=== PATIENT | female | born 1995 | race Caucasian/White ===

== ENCOUNTER → 2016-07-06 | Outpatient (CLI) | payer BC, OTHER ==
[2016-07-06 10:45] LABS: CH 24.7; HCT 35.9 % (34.0-46.0); HDW 2.74; HGB 11.9 gm/dL (11.4-16.0); MCH 24.9 pg (25.0-35.0); MCHC 33.1 g/dL (31.0-37.0); MCV 75.3 fL (80.0-100.0); Mean Platelet Volume 6.6; Microcytosis Slight; RBC 4.77 m/uL (3.80-5.40); RDW 15.2 % (11.5-15.5)
== END | disposition home or self-care (01) ==
LOC: LABWHC1 09:05
PROVIDERS: ATTEND Obstetrics & Gynecology
DX: Z34.02 Encounter for supervision of normal first pregnancy, second trimester (principal); Z3A.00 Weeks of gestation of pregnancy not specified
CPT/HCPCS: 36415; 82950; 85027

== ENCOUNTER → 2016-07-12 | Outpatient (CLI) | payer BC, OTHER ==
[2016-07-12 11:56] LABS: Glucose 3 Hour, Gest 85 mg/dL
== END | disposition home or self-care (01) ==
LOC: LABWHC1 08:02
PROVIDERS: ATTEND Obstetrics & Gynecology
DX: O99.810 Abnormal glucose complicating pregnancy (principal); Z3A.00 Weeks of gestation of pregnancy not specified
CPT/HCPCS: 36415; 82951; 82952

== ENCOUNTER → 2016-08-21 | Outpatient (CLI) | payer BC, OTHER ==
--- NOTE | 2016-08-21 15:52 | US ---
EXAMINATION TYPE: US OB >= 14 wk fetus DATE OF EXAM: 08/21/2016 10:14 AM COMPARISON: on PACS CLINICAL HISTORY: O36.63X0 for growth TECHNIQUE: Transabdominal (TA) GESTATIONAL AGE / DATING Physician Established: (31 weeks/2 days) EDC: 10/21/2016 Dates by Current Scan: (33 weeks/3 days) EDC: 10/06/2016 SURVEY IUP: Single PLACENTA: Anterior PREVIA: No Previa MARCELA: 14.4 cm Normal CERVICAL LENGTH (transabdominal: norm > 3.0cm): 3.3 cm BIOMETRY PRESENTATION: Vertex LIE: Longitudinal BPD: 8.3 cm 33 weeks / 3 days HC: 30.3 cm 33 weeks / 5 days AC: 29.3 cm 33 weeks / 3 days FL: 6.3 cm 32 weeks / 5 days ESTIMATED WEIGHT IN GRAMS: 2128 grams ESTIMATED WEIGHT IN LBS/OZS: 4 lbs. 11 oz. WEIGHT PERCENTAGE BASED ON ESTABLISHED DATES: 92% HC/AC: 1.0 Normal FL/AC: Normal HEART RATE: 132 bpm RHYTHM: Normal Live single IUP measuring 33 weeks 3 days IMPRESSION: 1. Single intrauterine gestation estimated at 33 weeks 3 days gestation based on the current ultrasou nd measurements. This would have a calculated EDC of 10/06/2016. Correlate this with her physician est ablished EDC of 10/21/2016. 2. Cardiac activity measures 132 bpm.
== END | disposition home or self-care (01) ==
LOC: RADUSWWP 09:42
PROVIDERS: ATTEND Obstetrics & Gynecology
DX: O36.63X0 Maternal care for excessive fetal growth, third trimester, not applicable or unspecified (principal); Z3A.33 33 weeks gestation of pregnancy
CPT/HCPCS: 76805

== ENCOUNTER 2016-10-02 06:05 | Inpatient (IN) | payer BC, OTHER ==
--- NOTE | 2016-10-01 19:53 | P.HPOB ---
History of Present Illness H&P Date: 10/01/16 Chief Complaint: Gestational hypertension, chronic hypertension This is a 21-year-old female 1 para 0 with an estimated date of confinement of 10/17/2016, estimated gestational age of 37-6/7 weeks, who presents to labor and delivery for induction of labor secondary to gestational hypertension with 2 documented blood pressures greater than 140/90 on 2 occasions more than 20 minutes apart. One week ago she did have an elevated blood pressure in the office of 148/90. Repeat blood pressure did come down to 138/88 and she was sent to labor and delivery for lab work and serial blood pressures which all were normal. She presents again for visit on 10/01 and her blood pressure is 148/92 despite increasing her blood pressure medications. She does complain of nausea and some dizziness but denies any headaches or blurry vision. She has been experiencing some swelling in her lower extremities. Due to the fact that her chronic hypertension is no longer controlled and she has increased blood pressures on several occasions, the decision is made to proceed with delivery due to gestational hypertension past 37 weeks. She is also had a complicated by gestational diabetes on glyburide twice daily. Her blood sugars have been in good control. She has been getting regular nonstress tests twice weekly in the office. She is also been following with high risk maternal medicine. labs: Toxoplasma-negative Syphilis antibody-negative HIV-nonreactive Random glucose-103 Hepatitis B surface antigen-negative Hemoglobin-12.6 Rubella-immune Blood type-oh positive Antibody screen-negative Obstetrical ultrasound-normal anatomy One hour Glucola-182 Three-hour Glucola-3 values are high. Group B streptococcus-negative Obstetrical history: . Gynecologic history: No history of sexual transmitted diseases. Review of Systems Constitutional: Denies chills, Denies fever Ears, nose, mouth and throat: Denies headache, Denies sore throat Cardiovascular: Denies chest pain, Denies shortness of breath Respiratory: Denies cough Gastrointestinal: Reports abdominal pain (Irregular contractions), Reports nausea Genitourinary: Reports pelvic pain, Reports Musculoskeletal: Reports low back pain Neurological: Denies numbness, Denies weakness Psychiatric: Denies anxiety, Denies depression Past Medical History Past Medical History: No Reported History History of Any Multi-Drug Resistant Organisms: None Reported Past Surgical History: Adenoidectomy, Tonsillectomy Past Psychological History: Depression Smoking Status: Never smoker Past Alcohol Use History: None Reported Past Drug Use History: None Reported - Past Family History Mother Family Medical History: Hypertension Medications and Allergies Home Medications Medication Instructions Recorded Confirmed Type Labetalol [Trandate] 100 mg PO BID 10/01/16 10/01/16 History Pnv with Ca,No.72/Iron/FA 1 tab PO DAILY 10/01/16 10/01/16 History [ Plus Tablet] glyBURIDE [Glyburide] 1.25 mg PO BID 10/01/16 10/01/16 History Allergies Allergy/AdvReac Type Severity Reaction Status Date / Time codeine AdvReac Unknown Verified 10/01/16 19:50 Exam Osteopathic Statement: *. No significant issues noted on an osteopathic structural exam other than those noted in the History and Physical/Consult. HEENT: Within normal limits Heart: Regular rate and rhythm Lungs: Clear to auscultation bilaterally Abdomen: , fundal height of 39 cm Cervix: 1.5 cm/60%/-3 heart tones: 140s by Doppler, reactive Extremities: Negative Homans, trace edema Assessment and Plan (1) 37 weeks gestation of Status: Acute (2) Gestational hypertension Status: Acute (3) Chronic hypertension affecting Status: Acute (4) Gestational diabetes mellitus Status: Acute Plan: Proceed with oxytocin induction of labor. Expectant management. Careful monitoring of blood sugars during labor.
[2016-10-02] MEDS ORDERED: OXYTOCIN 20 UNITS/1000 ML NS 1,000 ML IV SCH (06:20)
[2016-10-02] MEDS ORDERED: LIDOCAINE 1% 20 ML VIAL (10MG/ML) FOR IV START INTRADERMA PRN (06:20)
[2016-10-02] MEDS ORDERED: LIDOCAINE 1% (PF) 10 MG/ML (30 ML SDV) SQ PRN (06:20)
[2016-10-02] MEDS ORDERED: METHYLERGONOVINE 0.2 MG/ML 1 ML AMP IM PRN (06:20)
[2016-10-02] MEDS ORDERED: OXYTOCIN 10 UNIT/ML 1 ML VIAL IM PRN (06:20)
[2016-10-02] MEDS ORDERED: TERBUTALINE 1 MG/ML VIAL SQ PRN (06:20)
[2016-10-02] MEDS ORDERED: CARBOPROST TROMETHAMINE 250 MCG/ML 1 ML AMP IM PRN (06:20)
[2016-10-02 06:26] LABS: Glucose,Whole Blood 129 mg/dL (75-99)
[2016-10-02 06:32] VITALS: BMI 43.2
[2016-10-02 06:37] LABS: Basophils % (A) 0 %; CHCM 33.9; Eosinophils # (A) 0.1 k/uL (0-0.7); Eosinophils % (A) 1 %; HCT 35.7 % (34.0-46.0); HDW 2.94; Luc # (Auto) 0.16; Luc % (Auto) 1; Lymphocytes # (A) 2.2 k/uL (1.0-4.8); Lymphocytes % (A) 19 %; MCH 24.9 pg (25.0-35.0); MCHC 33.6 g/dL (31.0-37.0); MCV 74.1 fL (80.0-100.0); Mean Platelet Volume 7.1; Microcytosis Slight; Monocytes # (A) 0.5 k/uL (0-1.0); Monocytes % (A) 4 %; Neutrophils # (A) 8.7 k/uL (1.3-7.7); Neutrophils % (A) 75 %; RBC 4.81 m/uL (3.80-5.40); RDW 15.8 % (11.5-15.5); WBC 11.6 k/uL (4.0-11.0); WBC (Perox) 11.66
[2016-10-02] MEDS: LACTATED RINGERS 1,000 ML IV SCH ×3 (06:57→21:20)
[2016-10-02 07:23] LABS: Glucose,Urine (UA) Negative (Negative); Ketones,Urine Negative (Negative); Protein,Urine Negative (Negative)
[2016-10-02 07:41] LABS: ALT 22 U/L (9-52); AST 11 U/L (14-36); LDH 359 U/L (313-618); Non-African American GFR(MDRD) >60 (>60 ml/min/1.73 sqM); Uric Acid 6.1 mg/dL (3.7-7.4)
[2016-10-02 08:34] LABS: Hemoglobin A1C 6.2 % (4.2-6.1)
[2016-10-02 08:34] LABS: Glucose,Whole Blood 118 mg/dL (75-99)
[2016-10-02] MEDS: LABETALOL 100 MG TAB PO SCH ×2 (09:00→21:21)
[2016-10-02 11:08] LABS: Glucose,Whole Blood 124 mg/dL (75-99)
[2016-10-02 12:27] LABS: Glucose,Whole Blood 104 mg/dL (75-99)
[2016-10-02 14:18] LABS: Glucose,Whole Blood 94 mg/dL (75-99)
[2016-10-02 16:55] LABS: Glucose,Whole Blood 86 mg/dL (75-99)
[2016-10-02] MEDS ORDERED: LIDOCAINE-D5W PMX 2G/500ML 4 MG/ML IV ONE (17:21)
[2016-10-02] MEDS ORDERED: SODIUM CHLORIDE 0.9% 100 ML BAG ONE (17:21)
[2016-10-02] MEDS ORDERED: fentaNYL (PF) 50 MCG/ML 5 ML AMP ONE (17:21)
[2016-10-02 18:15] LABS: Glucose,Whole Blood 87 mg/dL (75-99)
[2016-10-02 20:12] LABS: Glucose,Whole Blood 91 mg/dL (75-99)
[2016-10-02 22:09] LABS: Glucose,Whole Blood 79 mg/dL (75-99)
[2016-10-03 00:15] LABS: Glucose,Whole Blood 87 mg/dL (75-99)
[2016-10-03] MEDS ORDERED: AMPICILLIN 2,000 MG in SODIUM CHLORIDE 0.9% 100 ML IVPB STA (01:48)
[2016-10-03 02:15] LABS: Glucose,Whole Blood 86 mg/dL (75-99)
--- NOTE | 2016-10-03 03:42 | P.PROBDLV ---
Vaginal Delivery Note - . Vaginal Delivery Note: The patient progressed to complete dilation after a rather protracted labor course with artificial rupture membranes and oxytocin induction of labor. She did receive epidural anesthesia. Once reaching complete dilation, she began pushing. 's head came to a crown. With one further push, the infant's head delivered across the perineum followed by the anterior shoulder and was immediately delivered and placed on mother's abdomen. Nose and mouth were bulb suctioned. Cord was clamped and cut and infant was taken to warmer for evaluation. A viable female infant was noted with scores of 8 at 1 minute and 9 at 5 minutes and infant weight was 8 lbs. 13.8 ounces. Placenta was not ready to separate yet and therefore attention was turned to the repair. Inspection of the perineum revealed a second-degree perineal laceration. This area was anesthetized with 1% lidocaine and then sutured with 3-0 and 2-0 Vicryl suture in the usual multilayer fashion. Once this was completed the placenta was ready to deliver. With gentle fundal massage the placenta did deliver and appeared to be intact with a three-vessel cord. Uterus initially did contract well with oxytocin and uterine massage. There was still noted to be some bleeding and therefore gloved hand was placed into the intrauterine cavity and there was a small piece of membrane removed along with some blood clot. Once this was removed the uterus did contract well and bleeding slowed considerably. Estimated blood loss is approximately 250 mL's. Mother and are in stable condition.
[2016-10-03] MEDS ORDERED: SIMETHICONE 80 MG CHEWABLE PO PRN (03:48)
[2016-10-03] MEDS ORDERED: HYDROCORTISONE 2.5% RECTAL CREAM 30 GM TUBE RECTAL PRN (03:48)
[2016-10-03] MEDS ORDERED: WITCH HAZEL 1 EACH MED..PAD TOPICAL PRN (03:48)
[2016-10-03] MEDS ORDERED: LANOLIN CREAM 5 GM TUBE TOPICAL PRN (03:48)
[2016-10-03] MEDS ORDERED: ZOLPIDEM 5 MG TAB PO PRN (03:48)
[2016-10-03] MEDS ORDERED: BENZOCAINE/MENTHOL SPRAY 1 GM/SPRAY AEROSOL TOPICAL PRN (03:48)
[2016-10-03] MEDS ORDERED: diphenhydrAMINE 50 MG CAP PO PRN (03:48)
[2016-10-03] MEDS ORDERED: diphenhydrAMINE 50 MG/ML 1 ML VIAL IVP PRN ×2 (03:48)
[2016-10-03] MEDS ORDERED: ACETAMINOPHEN TAB 325 MG TAB PO PRN (03:48)
[2016-10-03] MEDS ORDERED: OXYTOCIN 20 UNITS/1000 ML NS 1,000 ML IV SCH (03:48)
[2016-10-03] MEDS ORDERED: diphenhydrAMINE 25 MG CAP PO PRN (03:48)
[2016-10-03] MEDS: IBUPROFEN 600 MG TAB PO PRN ×2 (04:07→14:10)
[2016-10-03] MEDS: SENNOSIDES-DOCUSATE SODIUM 1 EACH TAB PO SCH ×4 (05:20→22:15)
[2016-10-03] MEDS ORDERED: AMPICILLIN 1,000 MG in SODIUM CHLORIDE 0.9% 50 ML IVPB SCH (06:00)
[2016-10-03 07:24] LABS: Glucose,Whole Blood 234 mg/dL (75-99)
[2016-10-03] MEDS: LABETALOL 100 MG TAB PO SCH ×2 (09:13→22:15)
[2016-10-04 08:29] LABS: Basophils % (A) 0 %; CH 24.7; CHCM 33.7; Eosinophils # (A) 0.1 k/uL (0-0.7); Eosinophils % (A) 1 %; HCT 24.6 % (34.0-46.0); HDW 2.94; Luc # (Auto) 0.15; Luc % (Auto) 2; Lymphocytes # (A) 1.9 k/uL (1.0-4.8); Lymphocytes % (A) 19 %; MCH 25.3 pg (25.0-35.0); MCHC 34.4 g/dL (31.0-37.0); MCV 73.5 fL (80.0-100.0); Mean Platelet Volume 7.2; Microcytosis Slight; Monocytes # (A) 0.5 k/uL (0-1.0); Monocytes % (A) 5 %; Neutrophils # (A) 7.7 k/uL (1.3-7.7); Neutrophils % (A) 74 %; RBC 3.34 m/uL (3.80-5.40); RDW 15.7 % (11.5-15.5); WBC 10.4 k/uL (4.0-11.0); WBC (Perox) 10.53
[2016-10-04 08:30] LABS: HGB 8.5 gm/dL (11.4-16.0)
--- NOTE | 2016-10-04 08:51 | P.DS ---
Providers Date of admission: 10/02/16 06:05 Expected date of discharge: 10/04/16 Attending physician: Giulia Carmona Primary care physician: Melissa Logan - Discharge Diagnosis(es) (1) 37 weeks gestation of Current Visit: Yes Status: Acute (2) Gestational hypertension Current Visit: Yes Status: Acute (3) Chronic hypertension affecting Current Visit: Yes Status: Acute (4) Gestational diabetes mellitus Current Visit: Yes Status: Acute Hospital Course: This is a 21 y.o female 1, para 0 who presented to L&D for induction of labor due to gestational hypertension with chronic hypertension and gestational diabetes. She underwent oxytocin induction of labor and delivered a viable female on 10/03/2016 with scores of 8 at 1 minute and 9 at 5 minutes and infant weight of 8 pounds, 13.8oz. Her course has been uncomplicated. She is breast-feeding. Denies any pain. Lochia is decreasing. Vital signs are stable. Abdomen is soft with fundus firm and non-tender. Extremities show trace edema. Impression is status post vaginal delivery day #1. Plan is to discharge home today. I have advised her to continue her Labetalol 100 mg BID, but discontinue her Glyburide. She will follow up in the office in 1 week for a blood pressure check and in 6 weeks for a post- check. Routine instructions are given. She is advised to call the office if she has any further questions or concerns prior to her appt. time. Procedures: Oxytocin induction of labor Spontaneous vaginal delivery of viable female on 10/03/2016. Patient Condition at Discharge: Stable Plan - Discharge Summary Discharge Medication List Labetalol [Trandate] 100 mg PO BID 10/01/16 [History] Pnv with Ca,No.72/Iron/FA [ Plus Tablet] 1 tab PO DAILY 10/01/16 [ History] Acetaminophen Tab [Tylenol] 650 mg PO Q4HR PRN tab 10/04/16 [Rx] Ibuprofen [Motrin] 600 mg PO Q6HR PRN tab 10/04/16 [Rx] Follow up Appointment(s)/Referral(s): Giulia Carmona DO [Doctor of Osteopathic Medicine] - 1 Week (1 week for BP check 6 weeks ) Discharge Disposition: HOME SELF-CARE
[2016-10-04 09:11] VITALS: BP 125/67; PULSE 92; RESP 16; TEMP 98.5
== END 2016-10-04 10:50 | disposition home or self-care (01) | DRG 774 ==
LOC: 4FBP 06:05
PROVIDERS: ADMIT Obstetrics & Gynecology; ATTEND Obstetrics & Gynecology
PROC: 3E033VJ Introduction of Other Hormone into Peripheral Vein, Percutaneous Approach (ICD-10-PCS; 2016-10-02)
PROC: 10E0XZZ Delivery of Products of Conception, External Approach (ICD-10-PCS; principal; 2016-10-03)
PROC: 0KQM0ZZ Repair Perineum Muscle, Open Approach (ICD-10-PCS; 2016-10-03)
DX: O10.02 Pre-existing essential hypertension complicating childbirth (principal); O70.1 Second degree perineal laceration during delivery; O13.4 Gestational [pregnancy-induced] hypertension without significant proteinuria, complicating childbirth; Z37.0 Single live birth; Z3A.37 37 weeks gestation of pregnancy; Z86.59 Personal history of other mental and behavioral disorders; Z79.84 Long term (current) use of oral hypoglycemic drugs
CPT/HCPCS: 81003; 82565; 83036; 83615; 84450; 84460; 84550; 85025; 88307

== ENCOUNTER 2017-06-02 16:51 | Emergency (ER) | payer BC, OTHER ==
[2017-06-02] MEDS ORDERED: SODIUM CHLORIDE 0.9% 2,000 ML IV STA (17:36)
[2017-06-02] MEDS ORDERED: ONDANSETRON 4 MG/2 ML VIAL IVP STA (17:36)
--- NOTE | 2017-06-02 18:03 | ED ---
Nausea/Vomiting/Diarrhea HPI - General Chief complaint: Nausea/Vomiting/Diarrhea Stated complaint: Abd Pain/Vomiting Time Seen by Provider: 06/02/17 17:07 Source: patient Mode of arrival: ambulatory Limitations: no limitations - History of Present Illness Initial comments: Patient is a 21-year-old female who comes in for abdominal pain and nausea, vomiting, diarrhea. Patient states that this abdominal pain started this morning and is described as a diffuse constant crampy sensation without radiation or modifying factors. She thinks that she has the chills but is unsure and denies any fever. She also admits to 10 episodes of diarrhea, vomiting. She denies any urinary symptoms or vaginal bleeding. - Related Data Home Medications Medication Instructions Recorded Confirmed ALPRAZolam [Xanax] 0.25 mg PO BID PRN 06/02/17 06/02/17 Sertraline [Zoloft] 50 mg PO DAILY 06/02/17 06/02/17 Previous Rx's Medication Instructions Recorded Dicyclomine [Bentyl] 20 mg PO QID #15 tablet 06/02/17 Ondansetron [Zofran ODT] 4 mg PO Q8HR PRN #15 tab 06/02/17 Allergies Allergy/AdvReac Type Severity Reaction Status Date / Time codeine AdvReac Nausea & Verified 06/02/17 18:11 Vomiting Review of Systems ROS Statement: Those systems with pertinent positive or pertinent negative responses have been documented in the HPI. Constitutional: Negative for chills, fatigue and fever. HENT: Negative for congestion. Respiratory: Negative for chest tightness, shortness of breath and wheezing. Cardiovascular: Negative for chest pain and palpitations. Gastrointestinal: Positive for abdominal pain, positive for nausea/vomiting/ diarrhea Genitourinary: Negative for dysuria. Musculoskeletal: Negative for back pain, neck pain and neck stiffness. Skin: Negative for color change. Neurological: Negative for dizziness, speech difficulty, weakness and light- headedness. Psychiatric/Behavioral: Negative for agitation and confusion. The patient is not nervous/anxious. ROS Other: All systems not noted in ROS Statement are negative. Past Medical History Past Medical History: No Reported History Additional Past Medical History / Comment(s): geststational hypertension and gestational diabetes History of Any Multi-Drug Resistant Organisms: None Reported Past Surgical History: Adenoidectomy, Tonsillectomy Past Anesthesia/Blood Transfusion Reactions: No Reported Reaction Past Psychological History: No Psychological Hx Reported Smoking Status: Never smoker Past Alcohol Use History: None Reported Past Drug Use History: None Reported - Past Family History Mother Family Medical History: Diabetes Mellitus Additional Family Medical History / Comment(s): type 2 diabetes, pill controlled General Exam - General Exam Comments Initial Comments: Physical Exam Constitutional: He is oriented to person, place, and time. He appears well- developed and well-nourished. No distress. HENT: Head: Normocephalic and atraumatic. Eyes: EOM are normal. Neck: Normal range of motion. Neck supple. Cardiovascular: Tachycardia, regular rhythm, S1 normal, S2 normal and normal heart sounds. Exam reveals no gallop and no friction rub. No murmur heard. Pulmonary/Chest: Effort normal and breath sounds normal. No tachypnea and no bradypnea. No respiratory distress. He has no wheezes. He has no rales. Abdominal: Soft. Bowel sounds are normal. He exhibits no shifting dullness, no distension, no pulsatile liver, no fluid wave, no abdominal bruit and no ascites. There is no tenderness. There is no rigidity, no rebound, no guarding, no tenderness at McBurney's point and negative Carvajal's sign. Genitourinary: Rectal exam shows no external hemorrhoid, no internal hemorrhoid , no fissure, no mass and no tenderness. Prostate is not tender. Musculoskeletal: Normal range of motion. Neurological: He is alert and oriented to person, place, and time. No cranial nerve deficit. Skin: Skin is warm and dry. No rash noted. He is not diaphoretic. No erythema. No pallor. Psychiatric: He has a normal mood and affect. His behavior is normal. Thought content normal. Limitations: no limitations Course Vital Signs 06/02/17 06/02/17 17:08 19:09 Temperature 96.9 F L 97.4 F L Pulse Rate 127 H 86 Respiratory 20 18 Rate Blood Pressure 159/95 148/81 O2 Sat by Pulse 98 97 Oximetry Medical Decision Making - Medical Decision Making Laboratory studies did show that there is a leukocytosis of over 22,000. However, this is suspected to be likely a viral illness as there is no evidence of transaminitis or infection from the urinalysis. Influenza was also noted to be negative. She was given 2 L of fluids and given Zofran as well as Bentyl stated symptoms were much improved. Vital signs were also noted to be improved after fluids. Patient was reexamined at least 2 times during her stay in the emergency department and had no pain to palpation on her abdominal exam. Therefore it was felt that she could safely be discharged and follow up with her PCP. Nonetheless, patient was cautioned to return to emergency department if symptoms worsened. Fiance and patient were agreeable to plan. Lastly, there is low suspicion of Clostridium difficile as the patient stated that she has not been using any antibiotics recently.. - Lab Data Result diagrams: 06/02/17 17:54 06/02/17 17:54 Lab Results 06/02/17 06/02/17 06/02/17 Range/Units 17:54 17:54 18:15 WBC 22.5 H (4.0-11.0) k/uL RBC 6.12 H (3.80-5.40) m/uL Hgb 13.7 (11.4-16.0) gm/dL Hct 42.6 (34.0-46.0) % MCV 69.6 L (80.0-100.0) fL MCH 22.4 L (25.0-35.0) pg MCHC 32.1 (31.0-37.0) g/dL RDW 15.5 (11.5-15.5) % Plt Count 407 (150-450) k/uL Neutrophils % 92 % Lymphocytes % 4 % Monocytes % 3 % Eosinophils % 0 % Basophils % 0 % Neutrophils # 20.7 H (1.3-7.7) k/uL Lymphocytes # 1.0 (1.0-4.8) k/uL Monocytes # 0.6 (0-1.0) k/uL Eosinophils # 0.1 (0-0.7) k/uL Basophils # 0.0 (0-0.2) k/uL Microcytosis Moderate Sodium 141 (137-145) mmol/L Potassium 4.5 (3.5-5.1) mmol/L Chloride 103 (98-107) mmol/L Carbon Dioxide 23 (22-30) mmol/L Anion Gap 15 mmol/L BUN 10 (7-17) mg/dL Creatinine 0.69 (0.52-1.04) mg/dL Est GFR (MDRD) Af Amer >60 (>60 ml/min/1.73 sqM) Est GFR (MDRD) Non-Af >60 (>60 ml/min/1.73 sqM) Glucose 137 H (74-99) mg/dL Calcium 10.2 (8.4-10.2) mg/dL Magnesium 1.6 (1.6-2.3) mg/dL Total Bilirubin 0.6 (0.2-1.3) mg/dL AST 20 (14-36) U/L ALT 42 (9-52) U/L Alkaline Phosphatase 114 (38-126) U/L Total Protein 8.4 H (6.3-8.2) g/dL Albumin 4.9 (3.5-5.0) g/dL Lipase 64 (23-300) U/L Urine Color Urine Appearance (Clear) Urine pH (5.0-8.0) Ur Specific [place] (1.001-1.035) Urine Protein (Negative) Urine Glucose (UA) (Negative) Urine Ketones (Negative) Urine Blood (Negative) Urine Nitrite (Negative) Urine Bilirubin (Negative) Urine Urobilinogen (<2.0) mg/dL Ur Leukocyte Esterase (Negative) Urine RBC (0-5) /hpf Urine WBC (0-5) /hpf Ur Squamous Epith Cells (0-4) /hpf Urine Bacteria (None) /hpf Granular Casts (0) /lpf Urine Mucus (None) /hpf Urine HCG, Qual (Not Detectd) Influenza Type A RNA Not Detected (Not Detectd) Influenza Type B (PCR) Not Detected (Not Detectd) 06/02/17 06/02/17 Range/Units 18:15 18:15 WBC (4.0-11.0) k/uL RBC (3.80-5.40) m/uL Hgb (11.4-16.0) gm/dL Hct (34.0-46.0) % MCV (80.0-100.0) fL MCH (25.0-35.0) pg MCHC (31.0-37.0) g/dL RDW (11.5-15.5) % Plt Count (150-450) k/uL Neutrophils % % Lymphocytes % % Monocytes % % Eosinophils % % Basophils % % Neutrophils # (1.3-7.7) k/uL Lymphocytes # (1.0-4.8) k/uL Monocytes # (0-1.0) k/uL Eosinophils # (0-0.7) k/uL Basophils # (0-0.2) k/uL Microcytosis Sodium (137-145) mmol/L Potassium (3.5-5.1) mmol/L Chloride (98-107) mmol/L Carbon Dioxide (22-30) mmol/L Anion Gap mmol/L BUN (7-17) mg/dL Creatinine (0.52-1.04) mg/dL Est GFR (MDRD) Af Amer (>60 ml/min/1.73 sqM) Est GFR (MDRD) Non-Af (>60 ml/min/1.73 sqM) Glucose (74-99) mg/dL Calcium (8.4-10.2) mg/dL Magnesium (1.6-2.3) mg/dL Total Bilirubin (0.2-1.3) mg/dL AST (14-36) U/L ALT (9-52) U/L Alkaline Phosphatase (38-126) U/L Total Protein (6.3-8.2) g/dL Albumin (3.5-5.0) g/dL Lipase (23-300) U/L Urine Color Yellow Urine Appearance Clear (Clear) Urine pH 5.5 (5.0-8.0) Ur Specific [place] 1.010 (1.001-1.035) Urine Protein 1+ H (Negative) Urine Glucose (UA) Negative (Negative) Urine Ketones Negative (Negative) Urine Blood Negative (Negative) Urine Nitrite Negative (Negative) Urine Bilirubin Negative (Negative) Urine Urobilinogen <2.0 (<2.0) mg/dL Ur Leukocyte Esterase Negative (Negative) Urine RBC 1 (0-5) /hpf Urine WBC 1 (0-5) /hpf Ur Squamous Epith Cells 1 (0-4) /hpf Urine Bacteria Rare H (None) /hpf Granular Casts 11 (0) /lpf Urine Mucus Occasional H (None) /hpf Urine HCG, Qual Not Detected (Not Detectd) Influenza Type A RNA (Not Detectd) Influenza Type B (PCR) (Not Detectd) Disposition Clinical Impression: Nausea vomiting and diarrhea Disposition: HOME SELF-CARE Condition: Good Instructions: Acute Nausea and Vomiting (ED) Prescriptions: Dicyclomine [Bentyl] 20 mg PO QID #15 tablet Ondansetron [Zofran ODT] 4 mg PO Q8HR PRN #15 tab PRN Reason: Nausea And Vomiting Referrals: Melissa Logan MD [Primary Care Provider] - 1-2 days
[2017-06-02 18:09] LABS: Basophils % (A) 0 %; Eosinophils # (A) 0.1 k/uL (0-0.7); Eosinophils % (A) 0 %; HCT 42.6 % (34.0-46.0); HGB 13.7 gm/dL (11.4-16.0); Lymphocytes % (A) 4 %; MCH 22.4 pg (25.0-35.0); MCHC 32.1 g/dL (31.0-37.0); MCV 69.6 fL (80.0-100.0); Mean Platelet Volume 6.3; Microcytosis Moderate; Monocytes # (A) 0.6 k/uL (0-1.0); Monocytes % (A) 3 %; Neutrophils # (A) 20.7 k/uL (1.3-7.7); Neutrophils % (A) 92 %; Platelet Count 407 k/uL (150-450); RBC 6.12 m/uL (3.80-5.40); RDW 15.5 % (11.5-15.5); WBC 22.5 k/uL (4.0-11.0)
[2017-06-02 18:21] LABS: ALT 42 U/L (9-52); AST 20 U/L (14-36); Albumin 4.9 g/dL (3.5-5.0); Alkaline Phosphatase 114 U/L (38-126); Anion Gap 15 mmol/L; Blood Urea Nitrogen 10 mg/dL (7-17); Calcium 10.2 mg/dL (8.4-10.2); Carbon Dioxide 23 mmol/L (22-30); Chloride 103 mmol/L (98-107); Glucose 137 mg/dL (74-99); Lipase 64 U/L (23-300); Magnesium 1.6 mg/dL (1.6-2.3); Potassium 4.5 mmol/L (3.5-5.1); Sodium 141 mmol/L (137-145); Total Bilirubin 0.6 mg/dL (0.2-1.3); Total Protein 8.4 g/dL (6.3-8.2)
[2017-06-02 19:04] LABS: Appearance,Urine Clear (Clear); Bacteria,Urine Rare /hpf; Bilirubin,Urine Negative (Negative); Blood,Urine Negative (Negative); Color,Urine Yellow; Glucose,Urine (UA) Negative (Negative); Granular Casts,Urine 11 /lpf (0); Ketones,Urine Negative (Negative); Leukocyte Esterase,Urine Negative (Negative); Mucus,Urine Occasional /hpf; Nitrite,Urine Negative (Negative); PH, Urine 5.5 (5.0-8.0); Protein,Urine 1+ (Negative); RBC,Urine 1 /hpf (0-5); Squamous Epithelial Cell,Urine 1 /hpf (0-4); Urobilinogen,Urine <2.0 mg/dL (<2.0); WBC,Urine 1 /hpf (0-5)
[2017-06-02 19:10] VITALS: BP 148/81; PULSE 86; RESP 18; TEMP 97.4
[2017-06-02] MEDS ORDERED: diphenhydrAMINE 50 MG/ML 1 ML VIAL IVP PRN (19:29)
[2017-06-02] MEDS ORDERED: METOCLOPRAMIDE 5 MG/ML 2 ML VIAL IVP STA (19:29)
[2017-06-02] MEDS ORDERED: diphenhydrAMINE 50 MG/ML 1 ML VIAL IVP STA (19:39)
== END 2017-06-02 20:04 | disposition home or self-care (01) ==
LOC: EC 16:51
DX: R11.2 Nausea with vomiting, unspecified (principal); R19.7 Diarrhea, unspecified; D72.829 Elevated white blood cell count, unspecified; R00.0 Tachycardia, unspecified; R10.84 Generalized abdominal pain; Z79.899 Other long term (current) drug therapy; Z88.5 Allergy status to narcotic agent
CPT/HCPCS: 36415; 80053; 83690; 83735; 85025; 81001; 81025; 87502; 99284; 96374; 96375 ×2; 96361 ×2; J1200; J2765; J2405

== ENCOUNTER 2017-06-21 09:51 | Emergency (ER) | payer BC ==
[2017-06-21 09:57] VITALS: RESP 18
--- NOTE | 2017-06-21 10:31 | ED ---
General Adult HPI - General Chief complaint: Vaginal Bleeding Stated complaint: Vaginal Bleeding- Time Seen by Provider: 06/21/17 10:01 Source: patient Mode of arrival: ambulatory Limitations: no limitations - History of Present Illness Initial comments: 21-year-old 001 presented for evaluation of vaginal bleeding that started this morning. She states that she woke up and noted the bleeding which was blood and clots. She denies any associated abdominal pain or other symptoms. Last Metro. Was 05/10 and she states that she does have a positive test at home and at her doctor's office. She states her previous was Located by gestational diabetes but no vaginal bleeding. She has not noticed any material from the vagina other than clots and blood. She is only gone through 1 pad today. No previous miscarriages. - Related Data Home Medications Medication Instructions Recorded Confirmed ALPRAZolam [Xanax] 0.25 mg PO BID PRN 06/02/17 06/21/17 Sertraline [Zoloft] 50 mg PO HS 06/02/17 06/21/17 Seb-Ople-Miryx Acid 1 cap PO DAILY 06/21/17 06/21/17 [-U Capsule (formulary)] Previous Rx's Medication Instructions Recorded Cephalexin [Keflex] 500 mg PO Q12HR #13 cap 06/21/17 Allergies Allergy/AdvReac Type Severity Reaction Status Date / Time codeine AdvReac Nausea & Verified 06/21/17 10:21 Vomiting Review of Systems ROS Statement: Those systems with pertinent positive or pertinent negative responses have been documented in the HPI. ROS Other: All systems not noted in ROS Statement are negative. Constitutional: Denies: fever, chills Eyes: Denies: eye pain, eye discharge ENT: Denies: ear pain, throat pain Respiratory: Denies: cough, dyspnea Cardiovascular: Denies: chest pain, palpitations Endocrine: Denies: fatigue, heat or cold intolerance Gastrointestinal: Denies: abdominal pain, nausea, vomiting Genitourinary: Reports: other (Vaginal bleeding). Denies: urgency, dysuria Musculoskeletal: Denies: back pain, arthralgia Skin: Denies: rash, lesions Neurological: Denies: headache, weakness Psychiatric: Denies: anxiety, depression Hematological/Lymphatic: Denies: easy bleeding, easy bruising Past Medical History Past Medical History: No Reported History Additional Past Medical History / Comment(s): geststational hypertension and gestational diabetes History of Any Multi-Drug Resistant Organisms: None Reported Past Surgical History: Adenoidectomy, Tonsillectomy Past Anesthesia/Blood Transfusion Reactions: No Reported Reaction Past Psychological History: No Psychological Hx Reported Smoking Status: Never smoker Past Alcohol Use History: None Reported Past Drug Use History: None Reported - Past Family History Mother Family Medical History: Diabetes Mellitus Additional Family Medical History / Comment(s): type 2 diabetes, pill controlled General Exam Limitations: no limitations General appearance: alert, in no apparent distress Head exam: Present: atraumatic, normocephalic, normal inspection Eye exam: Present: normal appearance, PERRL, EOMI. Absent: scleral icterus, conjunctival injection, periorbital swelling ENT exam: Present: normal exam, mucous membranes moist Neck exam: Present: normal inspection. Absent: tenderness, meningismus, lymphadenopathy Respiratory exam: Present: normal lung sounds bilaterally. Absent: respiratory distress, wheezes, rales, rhonchi, stridor Cardiovascular Exam: Present: regular rate, normal rhythm, normal heart sounds. Absent: systolic murmur, diastolic murmur, rubs, gallop, clicks GI/Abdominal exam: Present: soft, normal bowel sounds. Absent: distended, tenderness, guarding, rebound, rigid Rectal exam: Present: deferred Extremities exam: Present: normal inspection, full ROM, normal capillary refill. Absent: tenderness, pedal edema, joint swelling, calf tenderness Back exam: Present: normal inspection Neurological exam: Present: alert, oriented X3, CN II-XII intact Psychiatric exam: Present: normal affect, normal mood Skin exam: Present: warm, dry, intact, normal color. Absent: rash Course Vital Signs 06/21/17 06/21/17 09:55 11:52 Temperature 97.8 F 98.4 F Pulse Rate 91 77 Respiratory 18 18 Rate Blood Pressure 170/92 138/75 O2 Sat by Pulse 98 98 Oximetry Medical Decision Making - Medical Decision Making 21-year-old 001 female sitting for evaluation of vaginal bleeding that started this morning. Last period was 05/10 however she states no further confirmation of . On physical examination the patient appears to be in no apparent distress. Abdomen is soft and on peritoneal without signs of guarding, rigidity, or rebound. Labs significant for a UTI and patient was given her first dose of Keflex here in the ED. The BhCG was 679.2 which is not significant enough to detect on ultrasound. Pelvic exam revealed a closed cervical os without active bleeding. The patient was informed of all results and that she must follow-up with her [facility] on Saturday for repeat beta hCG. Further given return instructions. The patient acknowledged an understanding of all information provided and agreed with this plan of care. - Lab Data Result diagrams: 06/21/17 11:18 Lab Results 06/21/17 06/21/17 06/21/17 Range/Units 11:18 11:18 11:18 WBC 8.0 (4.0-11.0) k/uL RBC 5.33 (3.80-5.40) m/uL Hgb 12.0 (11.4-16.0) gm/dL Hct 37.7 (34.0-46.0) % MCV 70.8 L (80.0-100.0) fL MCH 22.4 L (25.0-35.0) pg MCHC 31.7 (31.0-37.0) g/dL RDW 15.3 (11.5-15.5) % Plt Count 360 (150-450) k/uL Neutrophils % 72 % Lymphocytes % 19 % Monocytes % 4 % Eosinophils % 2 % Basophils % 1 % Neutrophils # 5.7 (1.3-7.7) k/uL Lymphocytes # 1.5 (1.0-4.8) k/uL Monocytes # 0.3 (0-1.0) k/uL Eosinophils # 0.2 (0-0.7) k/uL Basophils # 0.0 (0-0.2) k/uL Microcytosis Moderate HCG, Quant 679.2 mIU/mL Urine Color Yellow Urine Appearance Turbid H (Clear) Urine pH 6.0 (5.0-8.0) Ur Specific Amado 1.013 (1.001-1.035) Urine Protein 2+ H (Negative) Urine Glucose (UA) Negative (Negative) Urine Ketones Negative (Negative) Urine Blood Moderate H (Negative) Urine Nitrite Negative (Negative) Urine Bilirubin Negative (Negative) Urine Urobilinogen <2.0 (<2.0) mg/dL Ur Leukocyte Esterase Large H (Negative) Urine RBC 148 H (0-5) /hpf Urine WBC >182 H (0-5) /hpf Ur Squamous Epith Cells 6 H (0-4) /hpf Urine Bacteria Many H (None) /hpf Disposition Clinical Impression: Threatened miscarriage in early , Vaginal bleeding, UTI (urinary tract infection) Disposition: HOME SELF-CARE Condition: Stable Instructions: Cephalexin (By mouth), Threatened Miscarriage (ED), Urinary Tract Infection in Women (ED) Additional Instructions: Please use medication as discussed. Please follow up with Dr. Carmona on Saturday for repeat beta hCG lab work in order to determine if it is progressing appropriately or decreasing. The concern is that you're having a a miscarriage however the other concern would be for an ectopic which as we discussed at the bedside means a that is located outside of the uterus. This can potentially be life-threatening and if he should have continued bleeding, worsening pain, nausea or vomiting that is uncontrollable, lightheadedness or dizziness, or pass out/lose consciousness he must return to the ED immediately. At this time the beta hCG is too low to do a pelvic ultrasound and would likely not reveal any significant findings that could be useful to her diagnostic approach. Prescriptions: Cephalexin [Keflex] 500 mg PO Q12HR #13 cap Referrals: Melissa Logan MD [Primary Care Provider] - 1-2 days Time of Disposition: 12:45
[2017-06-21 11:28] LABS: Basophils % (A) 1 %; Eosinophils # (A) 0.2 k/uL (0-0.7); Eosinophils % (A) 2 %; HCT 37.7 % (34.0-46.0); Lymphocytes # (A) 1.5 k/uL (1.0-4.8); Lymphocytes % (A) 19 %; MCH 22.4 pg (25.0-35.0); MCHC 31.7 g/dL (31.0-37.0); MCV 70.8 fL (80.0-100.0); Mean Platelet Volume 6.5; Microcytosis Moderate; Monocytes # (A) 0.3 k/uL (0-1.0); Monocytes % (A) 4 %; Neutrophils # (A) 5.7 k/uL (1.3-7.7); Neutrophils % (A) 72 %; Platelet Count 360 k/uL (150-450); RBC 5.33 m/uL (3.80-5.40); RDW 15.3 % (11.5-15.5)
[2017-06-21 11:39] LABS: Appearance,Urine Turbid (Clear); Bacteria,Urine Many /hpf; Bilirubin,Urine Negative (Negative); Blood,Urine Moderate (Negative); Color,Urine Yellow; Glucose,Urine (UA) Negative (Negative); Ketones,Urine Negative (Negative); Leukocyte Esterase,Urine Large (Negative); Nitrite,Urine Negative (Negative); Protein,Urine 2+ (Negative); RBC,Urine 148 /hpf (0-5); Specific Gravity,Urine 1.013 (1.001-1.035); Squamous Epithelial Cell,Urine 6 /hpf (0-4); Urobilinogen,Urine <2.0 mg/dL (<2.0); WBC,Urine >182 /hpf (0-5)
[2017-06-21 11:53] VITALS: BP 138/75; PULSE 77; TEMP 98.4
[2017-06-21] MEDS ORDERED: CEPHALEXIN 500 MG CAP PO STA (11:55)
== END 2017-06-21 13:02 | disposition home or self-care (01) ==
LOC: EC 09:51
DX: O20.0 Threatened abortion (principal); O23.40 Unspecified infection of urinary tract in pregnancy, unspecified trimester; Z79.899 Other long term (current) drug therapy; Z88.5 Allergy status to narcotic agent; Z3A.00 Weeks of gestation of pregnancy not specified
CPT/HCPCS: 36415; 81001; 84702; 85025; 99284

== ENCOUNTER → 2017-10-09 | Outpatient (CLI) | payer BC | END | disposition home or self-care (01) | LOC: LABWHC1 14:37 | PROVIDERS: ATTEND Obstetrics & Gynecology | DX: Z34.80 Encounter for supervision of other normal pregnancy, unspecified trimester (principal) | CPT/HCPCS: 36415; 84702 ==

== ENCOUNTER → 2017-10-16 | Outpatient (CLI) | payer BC | END | disposition home or self-care (01) | LOC: LABWHC1 11:46 | PROVIDERS: ATTEND Family Medicine | DX: N91.2 Amenorrhea, unspecified (principal) | CPT/HCPCS: 36415; 84702 ==

== ENCOUNTER → 2018-03-07 | Outpatient (CLI) | payer BC, OTHER ==
[2018-03-07 22:41] LABS: Hemoglobin A1C 6.5 % (4.0-6.0)
== END ==
LOC: LABWHC1 12:12
PROVIDERS: ATTEND Obstetrics & Gynecology
DX: O30.041 Twin pregnancy, dichorionic/diamniotic, first trimester (principal); Z3A.00 Weeks of gestation of pregnancy not specified
CPT/HCPCS: 36415; 82950; 83036

== ENCOUNTER 2018-08-04 11:18 | Outpatient (CLI) | payer BC, OTHER ==
[2018-08-04 14:39] VITALS: BP 137/71; PULSE 137; RESP 16; TEMP 98.4
--- NOTE | 2018-08-06 13:34 | P.MSEPDOC ---
Presenting Problems - Arrival Data Date of Arrival on Unit: 08/04/18 Time of Arrival on Unit: 11:18 Mode of Transport: Ambulatory - Complaint OB-Reason for Admission/Chief Complaint: Possible Onset of Labor Comment: twins Medical History - Information : 3 Para: 1 Term: 1 : 0 Abortions: Spontaneous or Elective: 1 Number of Living Children: 1 - Gestational Age Gestational Age by STEPHANIE (wks/days): 32 Weeks and 4 Days - History Complications: Multiple Review of Systems - Review of Systems Constitutional: No problems Breast: No problems ENT: No problems Cardiovascular: No problems Respiratory: No problems Gastrointestinal: No problems Genitourinary: No problems Musculoskeletal: No problems Neurological: No problems Skin: No problems Vital Signs - Temperature Temperature: 98.4 F Temperature Source: Temporal Artery Scan - Pulse Right Supine Brachial Pulse Rate: 137 Pulse Assessment Method: Automatic Cuff - Respirations Respiratory Rate: 16 Oxygen Delivery Method: Room Air O2 Sat by Pulse Oximetry: 98 - Blood Pressure Right Arm Supine Blood Pressure: 137/71 Blood Pressure Mean: 93 Blood Pressure Source: Automatic Cuff Medical Screen Scoring (Pre) - Cervical Exam Dilation: 1-3 cm = 1 Membranes: Intact - Uterine Contractions Frequency: > 5 minutes apart = 1 - Maternal Vital Signs Signs of Preeclampsia: N/A - Pain Assessment Pain Intensity: 0 Pain Behavior: None Exhibited - Assessment Baseline FHR: 155 Heart Rate - NICHD Category: Category I (Normal) = 0 NST: Reactive Position: Non-vertex & not laboring = 3 - Total Score Total Score (Pre): 5 - Level of Risk Level of Risk: Low (0-5) Physician Notification (Pre) - Physician Notified Physician Notified Date: 08/04/18 Physician Notified Time: 12:12 Physician/Practitioner Notifed:: Dr Carmona Spoke With: Dr Kristine Fried Order Received: Yes - Notification Comment Comment: Obtain reactive NST of twin B, SVE and send FFN if needed, call with results Physician Notification (Post) - Physician Notified Physician Notified Date: 08/04/18 Physician Notified Time: 14:00 Physician/Practitioner Notified:: Dr Carmona Spoke With: Dr Kristine Fried Order Received: Yes - Notification Comment Comment: Discharge to home Disposition - Disposition OB Disposition: Discharge to home Discharge Date: 03/18/19 Discharge Time: 14:05 I agree with the RN Medical Screening Exam: Yes Risk & Benefit of care provided described in d/c instruction: Yes Diagnosis: FALSE LABOR BEFORE 37 COMPLETED WEEKS OF GEST, THIRD TRI Additional Diagnoses: Twin gestation
== END 2018-08-04 14:05 | disposition home or self-care (01) ==
LOC: FBPOP 11:18
PROVIDERS: ATTEND Obstetrics & Gynecology
DX: O47.03 False labor before 37 completed weeks of gestation, third trimester (principal); Z3A.32 32 weeks gestation of pregnancy
CPT/HCPCS: 59025; 82731; 99213

== ENCOUNTER 2018-08-09 22:40 | Outpatient (CLI) | payer BC, OTHER ==
[2018-08-09 22:54] LABS: Glucose,Whole Blood 149 mg/dL (75-99)
[2018-08-10 00:13] VITALS: BP 145/83; PULSE 116; RESP 16; TEMP 97.1
[2018-08-10 00:54] LABS: ALT 27 U/L (9-52); AST 12 U/L (14-36); Blood Urea Nitrogen 6 mg/dL (7-17); LDH 375 U/L (313-618); Uric Acid 6.8 mg/dL (3.7-7.4)
[2018-08-10 01:00] LABS: Appearance,Urine Clear (Clear); Bilirubin,Urine Negative (Negative); Blood,Urine Negative (Negative); Color,Urine Yellow; Glucose,Urine (UA) Negative (Negative); Ketones,Urine Negative (Negative); Leukocyte Esterase,Urine Negative (Negative); Nitrite,Urine Negative (Negative); PH, Urine 5.5 (5.0-8.0); Protein,Urine Trace (Negative); Specific Gravity,Urine 1.014 (1.001-1.035); Urobilinogen,Urine <2.0 mg/dL (<2.0)
[2018-08-10 01:01] LABS: Anisocytosis Slight; Basophils % (A) 0 %; Eosinophils # (A) 0.1 k/uL (0-0.7); Eosinophils % (A) 1 %; HCT 32.8 % (34.0-46.0); HGB 10.9 gm/dL (11.4-16.0); Lymphocytes # (A) 2.2 k/uL (1.0-4.8); Lymphocytes % (A) 23 %; MCH 23.9 pg (25.0-35.0); MCHC 33.2 g/dL (31.0-37.0); Mean Platelet Volume 7.3; Microcytosis Moderate; Monocytes # (A) 0.6 k/uL (0-1.0); Monocytes % (A) 6 %; Neutrophils # (A) 6.8 k/uL (1.3-7.7); Neutrophils % (A) 69 %; Platelet Count 274 k/uL (150-450); RBC 4.56 m/uL (3.80-5.40); RDW 16.4 % (11.5-15.5); WBC 9.8 k/uL (3.8-10.6)
--- NOTE | 2018-08-19 07:46 | P.MSEPDOC ---
Presenting Problems - Arrival Data Date of Arrival on Unit: 08/09/18 Time of Arrival on Unit: 22:40 Mode of Transport: Ambulatory - Complaint OB-Reason for Admission/Chief Complaint: Other Comment: Pressure and tightening Medical History - Information : 3 Para: 1 Term: 1 : 0 Abortions: Spontaneous or Elective: 0 Number of Living Children: 1 - Gestational Age Gestational Age by STEPHANIE (wks/days): 33 Weeks and 3 Days - History Complications: GDM Review of Systems - Review of Systems Constitutional: No problems Breast: No problems ENT: No problems Cardiovascular: No problems Respiratory: No problems Gastrointestinal: No problems Genitourinary: No problems Musculoskeletal: No problems Neurological: No problems Skin: No problems Vital Signs - Temperature Temperature: 97.1 F Temperature Source: Temporal Artery Scan - Pulse Right Brachial Pulse Rate: 116 Pulse Assessment Method: Automatic Cuff - Respirations Respiratory Rate: 16 Oxygen Delivery Method: Room Air O2 Sat by Pulse Oximetry: 99 - Blood Pressure Right Arm Blood Pressure: 145/83 Blood Pressure Mean: 103 Blood Pressure Source: Automatic Cuff Medical Screen Scoring (Pre) - Cervical Exam Dilation: 1-3 cm = 1 Membranes: Intact - Uterine Contractions Frequency: N/A Duration: N/A Intensity: N/A - Maternal Vital Signs Maternal Temperature: N/A Maternal Blood Pressure: N/A Signs of Preeclampsia: N/A Maternal Respirations: N/A - Pain Assessment Pain Location and Character: Lower, Back Pain Scale Used: Numeric (1 - 10) Pain Intensity: 6 Pain Description: *Acute, Aching Pain Frequency: Intermittent Pain Duration Units: Minutes Pain Behavior: None Exhibited Pain Aggravating Factors: None - Assessment Heart Rate - NICHD Category: Category I (Normal) = 0 NST: Reactive Station: N/A - Total Score Total Score (Pre): 1 - Level of Risk Level of Risk: Low (0-5) Physician Notification (Pre) - Physician Notified Physician Notified Date: 08/09/18 Physician Notified Time: 23:58 Physician/Practitioner Notifed:: Dr. Brink Spoke With: Dr. Brink New Order Received: Yes - Notification Comment Comment: Dr. Brink called and given report on pt in tr. Twin gestation. IDGDM. VS with bp of. 145/83. No contractions noted. Vag exam of 2/thick/high. Reactive NST on twin A. Moderate variability of twin B but difficulty d/t movement. Orders recieved to collect. preeclampic labs and to call with results. Physician Notification (Post) - Physician Notified Physician Notified Date: 08/10/18 Physician Notified Time: 01:09 Physician/Practitioner Notified:: Dr. Brink Spoke With: Dr. Brink New Order Received: Yes - Notification Comment Comment: Dr. Brink called and given report on pt lab results. Orders recieved to d/c pt. to home. To keep apt with Dr. Carmona for 08/11/18 Disposition - Disposition OB Disposition: Discharge to home Discharge Date: 08/10/18 Discharge Time: 01:20 I agree with the RN Medical Screening Exam: Yes Risk & Benefit of care provided described in d/c instruction: Yes Diagnosis: FALSE LABOR BEFORE 37 COMPLETED WEEKS OF GEST, THIRD TRI
== END 2018-08-10 01:21 | disposition home or self-care (01) ==
LOC: FBPOP 22:40
PROVIDERS: ATTEND Obstetrics & Gynecology
DX: O47.03 False labor before 37 completed weeks of gestation, third trimester (principal); Z3A.33 33 weeks gestation of pregnancy
CPT/HCPCS: 59025; 81003; 82565; 82570; 83615; 84156; 84450; 84460; 84520; 84550; 85025; 99213

== ENCOUNTER 2018-08-15 11:01 | Outpatient (CLI) | payer BC, OTHER ==
[2018-08-15 11:30] VITALS: BP 139/85; PULSE 114; RESP 18; TEMP 98.1
--- NOTE | 2018-08-15 13:31 | P.MSEPDOC ---
Presenting Problems - Arrival Data Date of Arrival on Unit: 08/15/18 Time of Arrival on Unit: 11:11 Mode of Transport: Ambulatory - Complaint OB-Reason for Admission/Chief Complaint: NST Comment: pt here for NST for twin gestation. pt 34 1/7 weeks Medical History - Information : 3 Para: 1 Term: 1 : 0 Abortions: Spontaneous or Elective: 1 Number of Living Children: 1 - Gestational Age Gestational Age by STEPHANIE (wks/days): 34 Weeks and 1 Days - History Complications: GDM, Multiple Review of Systems - Review of Systems Constitutional: No problems Breast: No problems ENT: No problems Cardiovascular: No problems Respiratory: No problems Gastrointestinal: No problems Genitourinary: No problems Musculoskeletal: No problems Neurological: No problems Skin: No problems Vital Signs - Temperature Temperature: 98.1 F Temperature Source: Oral - Pulse Right Brachial Pulse Rate: 114 Pulse Assessment Method: Automatic Cuff - Respirations Respiratory Rate: 18 Oxygen Delivery Method: Room Air O2 Sat by Pulse Oximetry: 99 - Blood Pressure Right Arm Blood Pressure: 139/85 Blood Pressure Mean: 103 Blood Pressure Source: Automatic Cuff Medical Screen Scoring (Pre) - Cervical Exam Dilation: Exam Deferred Effacement: Exam Deferred - Uterine Contractions Frequency: N/A Duration: N/A Intensity: N/A - Maternal Vital Signs Maternal Temperature: N/A Maternal Blood Pressure: N/A Signs of Preeclampsia: N/A Maternal Respirations: N/A - Pain Assessment Pain Scale Used: Numeric (1 - 10) Pain Intensity: 0 Pain Management Goal: 0 Pain Behavior: Vocalization - Maternal Trauma Maternal Trauma: N/A - Total Score Total Score (Pre): 0 Medical Screen Scoring (Post) - Assessment Heart Rate: twin A 150 twin B 140 Heart Rate - NICHD Category: Category I (Normal) = 0 NST: Reactive Position: N/A Station: N/A - Total Score Total Score (Post): 0 - Post Treatment Level of Risk Post Treatment Level of Risk: Low (0-5) Physician Notification (Post) - Physician Notified Physician Notified Date: 08/15/18 Physician Notified Time: 11:45 Spoke With: DR LARA New Order Received: No - Notification Comment Comment: reactive NST for 34 1/7 week gestation TWINS B/P 133/80. May discharge to home and rosa isela appointment with Dr. Carmona 08/20/2018 Disposition - Disposition OB Disposition: Discharge to home Discharge Date: 08/15/18 Discharge Time: 11:55 I agree with the RN Medical Screening Exam: Yes Risk & Benefit of care provided described in d/c instruction: Yes Diagnosis: TWIN , DICHORIONIC/DIAMNIOTIC, THIRD TRIMESTER (NST Category I per RN and normal blood pressure. Followup as instructed by Dr. Carmona.)
== END 2018-08-15 11:55 | disposition home or self-care (01) ==
LOC: FBPOP 11:01
PROVIDERS: ATTEND Obstetrics & Gynecology
DX: O30.043 Twin pregnancy, dichorionic/diamniotic, third trimester (principal); Z3A.34 34 weeks gestation of pregnancy
CPT/HCPCS: 59025; 99213

== ENCOUNTER 2018-08-18 10:45 | Outpatient (CLI) | payer BC, OTHER ==
[2018-08-18 11:35] LABS: Glucose,Whole Blood 113 mg/dL (75-99)
[2018-08-18 12:27] VITALS: BP 145/84; PULSE 95; RESP 18; TEMP 98.3
[2018-08-18 13:00] LABS: Appearance,Urine Cloudy (Clear); Bacteria,Urine Occasional /hpf; Bilirubin,Urine Negative (Negative); Blood,Urine Negative (Negative); Color,Urine Light Yellow; Glucose,Urine (UA) Negative (Negative); Ketones,Urine Negative (Negative); Leukocyte Esterase,Urine Moderate (Negative); Nitrite,Urine Negative (Negative); Protein,Urine Negative (Negative); RBC,Urine 1 /hpf (0-5); Specific Gravity,Urine 1.004 (1.001-1.035); Squamous Epithelial Cell,Urine 6 /hpf (0-4); Urobilinogen,Urine <2.0 mg/dL (<2.0); WBC,Urine 2 /hpf (0-5)
[2018-08-18 13:05] LABS: ALT 22 U/L (9-52); AST 11 U/L (14-36); Blood Urea Nitrogen 4 mg/dL (7-17); LDH 413 U/L (313-618); Uric Acid 6.3 mg/dL (3.7-7.4)
[2018-08-18 13:17] LABS: Anisocytosis Slight; Basophils % (A) 0 %; Eosinophils # (A) 0.1 k/uL (0-0.7); Eosinophils % (A) 1 %; HCT 35.1 % (34.0-46.0); HGB 11.6 gm/dL (11.4-16.0); Lymphocytes # (A) 1.5 k/uL (1.0-4.8); Lymphocytes % (A) 15 %; MCH 23.7 pg (25.0-35.0); MCHC 33.1 g/dL (31.0-37.0); MCV 71.6 fL (80.0-100.0); Mean Platelet Volume 7.4; Microcytosis Moderate; Monocytes # (A) 0.5 k/uL (0-1.0); Monocytes % (A) 5 %; Neutrophils % (A) 79 %; Platelet Count 278 k/uL (150-450); RDW 16.4 % (11.5-15.5); WBC 10.2 k/uL (3.8-10.6)
--- NOTE | 2018-08-18 17:40 | P.MSEPDOC ---
Presenting Problems - Arrival Data Date of Arrival on Unit: 08/18/18 Time of Arrival on Unit: 10:50 Mode of Transport: Ambulatory - Complaint OB-Reason for Admission/Chief Complaint: NST Medical History - Information : 3 Para: 1 Term: 1 : 0 Abortions: Spontaneous or Elective: 1 Number of Living Children: 1 - Gestational Age Gestational Age by STEPHANIE (wks/days): 34 Weeks and 4 Days - History Complications: GDM Review of Systems - Review of Systems Constitutional: No problems Breast: No problems ENT: No problems Cardiovascular: No problems Respiratory: No problems Gastrointestinal: No problems Genitourinary: No problems Musculoskeletal: No problems Neurological: No problems Skin: No problems Vital Signs - Temperature Temperature: 98.3 F Temperature Source: Temporal Artery Scan - Pulse Right Sitting Brachial Pulse Rate: 95 Pulse Assessment Method: Automatic Cuff - Respirations Respiratory Rate: 18 Oxygen Delivery Method: Room Air O2 Sat by Pulse Oximetry: 98 - Blood Pressure Right Arm Sitting Blood Pressure: 145/84 Blood Pressure Mean: 104 Blood Pressure Source: Automatic Cuff Medical Screen Scoring (Pre) - Cervical Exam Dilation: Exam Deferred Effacement: Exam Deferred - Uterine Contractions Frequency: N/A Duration: N/A Intensity: N/A - Maternal Vital Signs Maternal Temperature: N/A Maternal Blood Pressure: N/A Signs of Preeclampsia: N/A Maternal Respirations: N/A - Pain Assessment Pain Scale Used: Numeric (1 - 10) Pain Intensity: 0 Pain Management Goal: 3 - Maternal Trauma Maternal Trauma: N/A - Assessment Baseline FHR: 135 Heart Rate - NICHD Category: Category I (Normal) = 0 NST: Reactive Position: N/A - Total Score Total Score (Pre): 0 - Level of Risk Level of Risk: Low (0-5) Physician Notification (Pre) - Physician Notified Physician Notified Date: 08/18/18 Physician Notified Time: 12:00 Physician/Practitioner Notifed:: Dr Carmona Spoke With: Dr Carmona New Order Received: Yes - Notification Comment Comment: JIM silva Disposition - Disposition OB Disposition: Observe Discharge Date: 08/18/18 Discharge Time: 12:27 I agree with the RN Medical Screening Exam: Yes Physician's MSE Comment: I spoke with Dr. Cordova ([facility]) regarding her elevated blood pressures and labs, including her protein to creatinine ratio of 0.7. He stated that since she doesn't have any symptoms and she does not meet severe criteria, we will continue the as scheduled. He has recommended that she follow-up in his office on for ultrasound of the babies and to continue the on unless severe symptoms or labs occur. At this time his recommendation is to plan section at about 37 weeks due to twins. Risk & Benefit of care provided described in d/c instruction: Yes Diagnosis: GESTATIONAL DIABETES IN , INSULIN CONTROLLED Additional Diagnoses: Gestational hypertension Twin gestation
== END 2018-08-18 13:58 | disposition home or self-care (01) ==
LOC: FBPOP 10:45
PROVIDERS: ATTEND Obstetrics & Gynecology
DX: O24.414 Gestational diabetes mellitus in pregnancy, insulin controlled (principal); Z3A.34 34 weeks gestation of pregnancy
CPT/HCPCS: 81001; 82565; 82570; 83615; 84156; 84450; 84460; 84520; 84550; 85025; 99215

== ENCOUNTER → 2018-08-29 | Outpatient (CLI) | payer BC, OTHER | LOC: FBPOP 10:28 | PROVIDERS: ATTEND Obstetrics & Gynecology | DX: Z53.9 Procedure and treatment not carried out, unspecified reason (principal) ==

== ENCOUNTER 2018-09-05 06:02 | Inpatient (IN) | payer BC, OTHER ==
[2018-09-03 15:08] VITALS: BMI 43.2
--- NOTE | 2018-09-04 20:05 | P.HPOB ---
History of Present Illness H&P Date: 09/04/18 Chief Complaint: Twin gestation, gestational diabetes, gestational hypertension This is a 23-year-old female 3 para 1 with an estimated date of confinement of 09/25/2018, estimated gestational age of 37 and one sevenths weeks, with a twin gestation who presents for scheduled primary section secondary to gestational hypertension, twin gestation, and gestational diabetes. She has been on insulin to control her diabetes and recently has developed gestational hypertension with positive protein to creatinine ratio of greater than 0.3. In addition her blood pressures have been elevated in the mild range. She has been following with maternal- medicine and they have recommended delivery at 37 weeks. labs: Hepatitis B surface antigen-negative RPR-nonreactive Rubella-immune Blood type-O+ Antibody screen-negative HIV-nonreactive Hemoglobin-11.5 Random glucose-100 GC/chlamydia-negative Ultrasound-twin gestation with dichorionic diamniotic. Early 1 hour Glucola-160 Group B streptococcus-negative Obstetrical history: . History of 1 vaginal delivery at 37-6/7 weeks due to gestational hypertension and gestational diabetes. 1 miscarriage. Gynecologic history: No history of sexual transmitted diseases. Social history: She is single. She works in a warehouse. Review of Systems Constitutional: Denies chills, Denies fever Eyes: denies blurred vision, denies pain Ears, nose, mouth and throat: Denies headache, Denies sore throat Cardiovascular: Denies chest pain, Denies shortness of breath Respiratory: Denies cough Gastrointestinal: Reports abdominal pain (Irregular contractions) Genitourinary: Reports pelvic pain, Reports Musculoskeletal: Reports low back pain Integumentary: Denies pruritus, Denies rash Neurological: Denies numbness, Denies weakness Past Medical History Past Medical History: Blood Disorder Additional Past Medical History / Comment(s): geststational hypertension and gestational diabetes, MTHFR History of Any Multi-Drug Resistant Organisms: None Reported Past Surgical History: Adenoidectomy, Tonsillectomy Past Anesthesia/Blood Transfusion Reactions: No Reported Reaction Past Psychological History: No Psychological Hx Reported Smoking Status: Never smoker Past Alcohol Use History: None Reported Past Drug Use History: None Reported - Past Family History Mother Family Medical History: Diabetes Mellitus Additional Family Medical History / Comment(s): type 2 diabetes, pill controlled Medications and Allergies Home Medications Medication Instructions Recorded Confirmed Type Wtc-Ijpz-Yeqqt Acid 1 cap PO DAILY 06/21/17 09/03/18 History [-U Capsule (formulary)] INSULIN LISPRO (humaLOG) [humaLOG] 8 units SQ BID-W/MEALS 08/04/18 09/03/18 History Allergies Allergy/AdvReac Type Severity Reaction Status Date / Time codeine AdvReac Nausea & Verified 09/03/18 15:04 Vomiting Exam Osteopathic Statement: *. No significant issues noted on an osteopathic structural exam other than those noted in the History and Physical/Consult. HEENT: Within normal limits Heart: Regular rate and rhythm Lungs: Clear to auscultation bilaterally Abdomen: Cervix: 1 cm/60%/-2 station heart tones: Each twin is approximately 150s by Doppler Extremities: Trace edema. Assessment and Plan (1) Twin gestation in third trimester Status: Acute Code(s): O30.003 - TWIN PREG, UNSP NUM PLCNTA & AMNIO SACS, THIRD TRIMESTER SNOMED Code(s): 63133459 (2) Gestational hypertension Status: Acute Code(s): O13.9 - GESTATIONAL HTN W/O SIGNIFICANT PROTEINURIA, UNSP TRIMESTER SNOMED Code(s): 732819600 (3) Gestational diabetes mellitus Status: Acute Code(s): O24.419 - GESTATIONAL DIABETES MELLITUS IN , UNSP CONTROL SNOMED Code(s): 48358210 Plan: Proceed with primary section. Monitor blood pressures and sugars. I have discussed the risks, benefits, and alternative therapies for the above- mentioned procedure and for both sedation/anesthesia as well as necessary blood products administration, if indicated, as they pertain to this patient. The patient has indicated her understanding and acceptance of the risks and procedures discussed.
[2018-09-05] MEDS ORDERED: CITRIC ACID-SODIUM CITRATE 15 ML CUP PO ONE (06:22)
[2018-09-05] MEDS ORDERED: LACTATED RINGERS 1,000 ML IV ONE (06:22)
[2018-09-05] MEDS ORDERED: LIDOCAINE 1% 20 ML VIAL (10MG/ML) FOR IV START INTRADERMA PRN (06:22)
[2018-09-05 06:36] LABS: Glucose,Whole Blood 121 mg/dL (75-99)
[2018-09-05] MEDS: LACTATED RINGERS 1,000 ML IV SCH ×2 (06:51→16:24)
[2018-09-05] MEDS ORDERED: ceFAZolin 3 GM in SODIUM CHLORIDE 0.9% 100 ML IVPB ONE (07:00)
[2018-09-05 07:27] LABS: Anisocytosis Slight; Basophils % (A) 0 %; Eosinophils # (A) 0.1 k/uL (0-0.7); Eosinophils % (A) 1 %; HCT 34.5 % (34.0-46.0); HGB 11.4 gm/dL (11.4-16.0); Lymphocytes # (A) 1.7 k/uL (1.0-4.8); Lymphocytes % (A) 18 %; MCH 23.7 pg (25.0-35.0); MCHC 32.9 g/dL (31.0-37.0); MCV 72.1 fL (80.0-100.0); Mean Platelet Volume 8.2; Microcytosis Moderate; Monocytes # (A) 0.5 k/uL (0-1.0); Monocytes % (A) 5 %; Neutrophils # (A) 7.2 k/uL (1.3-7.7); Neutrophils % (A) 75 %; Platelet Count 246 k/uL (150-450); RBC 4.79 m/uL (3.80-5.40); WBC 9.6 k/uL (3.8-10.6)
[2018-09-05] MEDS ORDERED: NALBUPHINE 10 MG/ML (1 ML AMP) ONE (08:44)
[2018-09-05] MEDS ORDERED: KETOROLAC 30 MG/ML 1 ML VIAL ONE (08:44)
[2018-09-05] MEDS ORDERED: ONDANSETRON 4 MG/2 ML VIAL ONE (08:44)
[2018-09-05] MEDS ORDERED: OXYTOCIN 10 UNIT/ML 1 ML VIAL ONE (08:44)
[2018-09-05] MEDS ORDERED: PHENYLEPHRINE-0.9% NACL SYG 1 MG/10 ML SYRINGE ONE (08:44)
[2018-09-05] MEDS ORDERED: MORPHINE SULFATE (PF) 0.3 MG/0.3 ML SYR ONE (08:44)
--- NOTE | 2018-09-05 08:54 | P.OP ---
Date of Procedure: 09/05/18 Preoperative Diagnosis: 1. Twin gestation at 37 and one sevenths weeks. 2. Gestational hypertension. 3. Gestational diabetes. 4. Both twins with 2 vessel cord. Postoperative Diagnosis: Same Procedure(s) Performed: Primary low transverse section Anesthesia: spinal (Duramorph ) Surgeon: Giulia Carmona Svp Chief Marketing Officer #1: Elfego Green Estimated Blood Loss (ml): 1,000 Pathology: other (Placentas) Condition: stable Disposition: floor Indications for Procedure: This is a 23-year-old female repair 1 at 37 and one sevenths weeks with twin gestation who presents for scheduled primary section due to gestational hypertension and gestational diabetes. In addition both twins have 2 vessel cords. Please see history and physical for details of patient's admission. Operative Findings: Baby A is a viable male infant in the vertex presentation with scores of 9 at 1 minute and 10 at 5 minutes and weight of 6 lbs. 6 oz. Baby B is a female that was in the transverse lie converted to vertex presentation with scores of 7 at 1 minute and 8 at 5 minutes and infant weight of 6 pounds 5.8 ounces. Both placentas appeared normal. 2 vessel cords were noted on both babies. Normal uterus tubes and ovaries are noted. Description of Procedure: The patient is taken to the operating room where she is placed in the dorsal supine position with leftward tilt after spinal Duramorph anesthesia is given. She is prepped and draped in the normal sterile fashion. Skin was tested and found to be adequately anesthetized. A Pfannenstiel skin incision was made with a scalpel. A second knife was used to carry the incision down to the underlying layer of fascia. The fascia was nicked in the midline with a scalpel and then extended laterally bilaterally with Boykin scissors. The anterior lip of the fascia was grasped with 2 Jackie clamps and then dissected off the underlying rectus muscle in the midline with Boykin scissors. The inferior aspect of the fascial incision was grasped with 2 Jackie clamps and dissected off the underlying rectus muscle and the midline with Boykin scissors. Next the peritoneum layer was tented up with 2 hemostats and then entered sharply with the scalpel. The incision is extended superiorly and inferiorly with Metzenbaum scissors. Next a DeLee retractor is placed. The vesicouterine peritoneum is entered sharply with Metzenbaum scissors and extended laterally bilaterally with Metzenbaum scissors and then the bladder flap is pushed inferiorly. The lower uterine segment is incised in transverse fashion with the scalpel and then bluntly entered with a hemostat. Clear fluid is noted. The incision was then extended laterally bilaterally with 2 fingers. Next baby A is noted to be in the vertex presentation and the head is delivered through the incision. Nose and mouth are bulb suctioned. The remainder of the infant is easily delivered and placed on mother's abdomen. Cord is clamped and cut. is taken to warmer by nursing staff. Next baby B is palpated and converted from transverse to vertex lie and then bag of water is ruptured with clear fluid noted. 's head is then gently delivered through the incision and nose and mouth are bulb suctioned. Remainder the is easily delivered and cord is clamped and cut. is taken to warmer for evaluation. Cord blood was obtained from both cords due to O+ blood type. Uterine fundus is gently massaged and placentas are delivered manually. Uterus is exteriorized and cleared of all clots and debris. Uterine incision is closed with 0 Vicryl suture in a running locked fashion. A second layer of 0 Vicryl suture is used in a running fashion for hemostasis. Once adequate hemostasis as assured, the vesicouterine peritoneum is reapproximated with 2-0 Vicryl suture in a running fashion. Posterior cul-de-sac is suctioned of all clots and debris. Uterus is returned to the abdomen. Incision is noted to be hemostatic. Peritoneal layer is closed with 0 Vicryl suture in a running fashion. Muscle layer is reapproximated with 0 Vicryl suture in interrupted fashion. Fascia layer is then closed with 0 PDS suture with 2 sutures meeting in the midline and the knots buried in either side and in the midline. The subcutaneous tissue was then closed with 2-0 Vicryl suture. Skin layer was then closed with donis. All sponge and needle counts are correct. The patient is taken to recovery room in stable condition.
[2018-09-05] MEDS ORDERED: LANOLIN CREAM 5 GM TUBE TOPICAL PRN (10:26)
[2018-09-05] MEDS ORDERED: HYDROcodone/APAP 7.5-325MG 1 EACH TAB PO PRN (10:26)
[2018-09-05] MEDS ORDERED: diphenhydrAMINE 25 MG CAP PO PRN (10:26)
[2018-09-05] MEDS ORDERED: ONDANSETRON 4 MG/2 ML VIAL IVP PRN (10:26)
[2018-09-05] MEDS ORDERED: NALOXONE 0.4 MG/ML 1 ML VIAL IV PRN (10:26)
[2018-09-05] MEDS ORDERED: LACTATED RINGERS 1,000 ML IV SCH (10:26)
[2018-09-05] MEDS ORDERED: METOCLOPRAMIDE 5 MG/ML 2 ML VIAL IVP PRN (10:26)
[2018-09-05] MEDS ORDERED: diphenhydrAMINE 50 MG/ML 1 ML VIAL IVP PRN ×2 (10:26)
[2018-09-05] MEDS ORDERED: ZOLPIDEM 5 MG TAB PO PRN (10:26)
[2018-09-05] MEDS ORDERED: diphenhydrAMINE 50 MG CAP PO PRN (10:26)
[2018-09-05] MEDS ORDERED: OXYTOCIN 20 UNITS/1000 ML NS 1,000 ML IV SCH (10:26)
[2018-09-05 11:18] LABS: Glucose,Whole Blood 141 mg/dL (75-99)
[2018-09-05] MEDS: KETOROLAC 30 MG/ML 1 ML VIAL IVP PRN ×2 (16:42→21:50)
[2018-09-05 17:26] LABS: Glucose,Whole Blood 110 mg/dL (75-99)
[2018-09-05 19:02] LABS: Hemoglobin A1C 6.4 % (4.0-6.0)
[2018-09-05] MEDS: SENNOSIDES-DOCUSATE SODIUM 1 EACH TAB PO SCH (20:55)
[2018-09-05 21:01] LABS: Glucose,Whole Blood 118 mg/dL (75-99)
[2018-09-06] MEDS: KETOROLAC 30 MG/ML 1 ML VIAL IVP PRN (03:53)
--- NOTE | 2018-09-06 06:33 | P.PNOBGPC ---
Subjective - Subjective Principal diagnosis: Status post primary section postoperative day #1 Interval history: Patient is doing well. She is ambulating. She has not been able to urinate yet and therefore catheter was replaced last night. She is passing flatus but no bowel movement yet. She is breast-feeding. Lochia is decreasing. Her pain is fairly well controlled. Patient reports: Reports appetite normal, Reports pain well controlled, Reports ambulating normally : doing well, nursing well Objective - Vital Signs Latest vital signs: Vital Signs Temp Pulse Resp BP Pulse Ox 09/06/18 03:56 97.7 F 71 18 128/78 09/06/18 00:00 97.9 F 81 17 129/71 100 09/05/18 20:34 98.1 F 92 16 144/83 97 09/05/18 16:00 97.7 F 87 18 143/89 100 09/05/18 12:00 97.5 F L 86 16 129/70 98 09/05/18 10:40 97.5 F L 86 18 111/60 98 09/05/18 10:10 97.0 F L 102 H 18 108/67 98 09/05/18 09:40 97.8 F 89 16 126/68 98 09/05/18 09:25 97.2 F L 85 16 116/68 97 09/05/18 09:10 97.3 F L 89 16 120/75 97 09/05/18 08:55 97.2 F L 91 18 109/74 98 09/05/18 08:40 97.3 F L 87 18 111/66 99 Intake and Output 09/05/18 09/05/18 09/06/18 14:59 22:59 06:59 Output Total 3200 350 1000 Balance -3200 -350 -1000 Output: Urine 573 408 9524 Uretheral (Bermudez) 1000 Estimated Blood Loss 3000 - Exam Extremities: Present: normal. Absent: tenderness Abdomen: Present: normal appearance, soft (Positive bowel sounds 4). Absent: distention, tenderness Incision: Present: normal, dry, intact. Absent: erythematous Uterus: Present: normal, firm. Absent: tenderness - Labs Labs: Abnormal Lab Results - Last 24 Hours (Table) 09/05/18 09/05/18 09/05/18 Range/Units 06:30 06:45 06:45 MCV 72.1 L (80.0-100.0) fL MCH 23.7 L (25.0-35.0) pg RDW 17.0 H (11.5-15.5) % POC Glucose (mg/dL) 121 H (75-99) mg/dL Hemoglobin A1c 6.4 H (4.0-6.0) % 09/05/18 09/05/18 09/05/18 Range/Units 11:08 17:23 20:57 MCV (80.0-100.0) fL MCH (25.0-35.0) pg RDW (11.5-15.5) % POC Glucose (mg/dL) 141 H 110 H 118 H (75-99) mg/dL Hemoglobin A1c (4.0-6.0) % Assessment and Plan Assessment: Impression is status post section for twin gestation postoperative day #1, gestational hypertension-stable, gestational diabetes-blood sugars still slightly elevated. (1) Twin gestation in third trimester Current Visit: No Status: Acute Code(s): O30.003 - TWIN PREG, UNSP NUM PLCNTA & AMNIO SACS, THIRD TRIMESTER SNOMED Code(s): 24159063 (2) Gestational hypertension Current Visit: No Status: Acute Code(s): O13.9 - GESTATIONAL HTN W/O SIGNIFICANT PROTEINURIA, UNSP TRIMESTER SNOMED Code(s): 407596654 (3) Gestational diabetes mellitus Current Visit: No Status: Acute Code(s): O24.419 - GESTATIONAL DIABETES MELLITUS IN , UNSP CONTROL SNOMED Code(s): 90326890 Plan: Will try removing catheter this morning and attempting urination. Will switch to oral pain medications today. Advance diet as tolerated.
[2018-09-06 06:40] LABS: Anisocytosis Slight; Basophils % (A) 0 %; Eosinophils # (A) 0.1 k/uL (0-0.7); Eosinophils % (A) 1 %; HCT 29.4 % (34.0-46.0); Hypochromasia Slight; Lymphocytes # (A) 1.5 k/uL (1.0-4.8); Lymphocytes % (A) 16 %; MCH 24.4 pg (25.0-35.0); MCHC 33.6 g/dL (31.0-37.0); MCV 72.5 fL (80.0-100.0); Mean Platelet Volume 8.5; Microcytosis Moderate; Monocytes # (A) 0.5 k/uL (0-1.0); Monocytes % (A) 5 %; Neutrophils # (A) 7.5 k/uL (1.3-7.7); Neutrophils % (A) 77 %; Platelet Count 222 k/uL (150-450); RBC 4.05 m/uL (3.80-5.40); RDW 16.6 % (11.5-15.5); WBC 9.7 k/uL (3.8-10.6)
[2018-09-06 06:44] LABS: Glucose,Whole Blood 103 mg/dL (75-99)
[2018-09-06 06:52] LABS: HGB 9.9 gm/dL (11.4-16.0)
[2018-09-06] MEDS: SENNOSIDES-DOCUSATE SODIUM 1 EACH TAB PO SCH ×2 (10:11→21:32)
[2018-09-06 11:37] LABS: Glucose,Whole Blood 83 mg/dL (75-99)
[2018-09-06] MEDS: IBUPROFEN 600 MG TAB PO PRN ×2 (15:22→21:31)
[2018-09-06 17:26] LABS: Glucose,Whole Blood 128 mg/dL (75-99)
[2018-09-06] MEDS: SIMETHICONE 80 MG CHEWABLE PO PRN (21:32)
[2018-09-06 21:42] LABS: Glucose,Whole Blood 152 mg/dL (75-99)
[2018-09-06] MEDS: ACETAMINOPHEN TAB 325 MG TAB PO PRN (22:48)
[2018-09-07] MEDS: HYDROcodone/APAP 5-325MG 1 EACH TAB PO PRN ×3 (00:58→19:58)
[2018-09-07] MEDS: IBUPROFEN 600 MG TAB PO PRN ×3 (02:57→18:42)
--- NOTE | 2018-09-07 06:15 | P.PNOBGPC ---
Subjective - Subjective Principal diagnosis: Status post primary section postoperative day #2 Interval history: Patient is doing well. She is ambulating. She is passing flatus. She is urinating without difficulty. She is breast-feeding both babies. Pain is fairly well controlled with ibuprofen and [place]. Patient reports: Reports appetite normal, Reports voiding normally, Reports pain well controlled, Reports ambulating normally : doing well, nursing well Objective - Vital Signs Latest vital signs: Vital Signs Temp Pulse Resp BP Pulse Ox 09/07/18 00:00 97.9 F 81 15 129/71 99 09/06/18 16:00 98.0 F 87 16 148/78 98 09/06/18 08:00 97.8 F 95 18 147/72 99 Intake and Output 09/06/18 09/06/18 09/07/18 14:59 22:59 06:59 Output Total 1100 Balance -1100 Output: Urine 1100 Other: # Voids 1 - Exam Extremities: Present: normal, edema (Trace). Absent: tenderness Abdomen: Present: normal appearance, soft (Positive bowel sounds 4). Absent: distention, tenderness Incision: Present: normal, dry, intact. Absent: erythematous Uterus: Present: normal, firm. Absent: tenderness - Labs Labs: Abnormal Lab Results - Last 24 Hours (Table) 09/06/18 09/06/18 09/06/18 Range/Units 06:21 06:42 17:24 Hgb 9.9 L D (11.4-16.0) gm/dL Hct 29.4 L (34.0-46.0) % MCV 72.5 L (80.0-100.0) fL MCH 24.4 L (25.0-35.0) pg RDW 16.6 H (11.5-15.5) % POC Glucose (mg/dL) 103 H 128 H (75-99) mg/dL 09/06/18 Range/Units 21:31 Hgb (11.4-16.0) gm/dL Hct (34.0-46.0) % MCV (80.0-100.0) fL MCH (25.0-35.0) pg RDW (11.5-15.5) % POC Glucose (mg/dL) 152 H (75-99) mg/dL Assessment and Plan Assessment: Impression is status post primary section postoperative day #2. (1) Twin gestation in third trimester Current Visit: No Status: Acute Code(s): O30.003 - TWIN PREG, UNSP NUM PLCNTA & AMNIO SACS, THIRD TRIMESTER SNOMED Code(s): 95442542 (2) Gestational hypertension Current Visit: No Status: Acute Code(s): O13.9 - GESTATIONAL HTN W/O SIGNIFICANT PROTEINURIA, UNSP TRIMESTER SNOMED Code(s): 176981411 (3) Gestational diabetes mellitus Current Visit: No Status: Acute Code(s): O24.419 - GESTATIONAL DIABETES MELLITUS IN , UNSP CONTROL SNOMED Code(s): 07743512 Plan: Continue with postoperative care. Anticipate discharge home probably tomorrow once the babies are off the bili light.
[2018-09-07 06:38] LABS: Glucose,Whole Blood 95 mg/dL (75-99)
--- NOTE | 2018-09-07 08:17 | P.PN ---
Progress Note - Text Progress Note Date: 09/06/18 Patient was seen on 09/06 in the AM. Note was not placed initially. She was s/p with duramorph spinal. Patient was doing well, pain controlled, no lower ext weakness or parasthesia. She was able to ambulate and had return of bowel and bladder function. No pruritis. Patient did very well, d/c home.
[2018-09-07] MEDS: SENNOSIDES-DOCUSATE SODIUM 1 EACH TAB PO SCH ×2 (09:04→19:46)
[2018-09-08] MEDS: IBUPROFEN 600 MG TAB PO PRN ×3 (01:36→21:40)
[2018-09-08] MEDS: SENNOSIDES-DOCUSATE SODIUM 1 EACH TAB PO SCH ×2 (08:00→21:41)
[2018-09-08] MEDS: SIMETHICONE 80 MG CHEWABLE PO PRN (13:27)
[2018-09-08] MEDS: ACETAMINOPHEN TAB 325 MG TAB PO PRN (16:28)
[2018-09-09 00:05] VITALS: TEMP 98.5
[2018-09-09] MEDS: IBUPROFEN 600 MG TAB PO PRN (07:53)
[2018-09-09 08:02] VITALS: BP 130/73; PULSE 86; RESP 18
--- NOTE | 2018-09-09 09:15 | P.PN ---
Subjective Progress Note Date: 09/08/18 Principal diagnosis: Status post primary section postoperative day #3 Patient is doing well. She is breast-feeding both babies. She is passing flatus and bowel movement. Pain is fairly well controlled with oral pain medications. Her blood sugars have been good and therefore we are not continuing to check blood sugars at this time. Blood pressures have been stable . Objective - Vital Signs Vital signs: Vital Signs Temp 98.5 F 09/09/18 08:00 Pulse 86 09/09/18 08:00 Resp 18 09/09/18 08:00 BP 130/73 09/09/18 08:00 Pulse Ox 98 09/07/18 23:19 - Constitutional General appearance: Present: no acute distress - Gastrointestinal Gastrointestinal Comment(s): Incision is clean dry and intact with donis in place General gastrointestinal: Present: normal bowel sounds - Musculoskeletal Musculoskeletal Comment(s): Negative Homans - Labs CBC & Chem 7: 09/06/18 06:21 Assessment and Plan Assessment: Impression is status post primary section postoperative day #3 (1) Twin gestation in third trimester Current Visit: No Status: Acute Code(s): O30.003 - TWIN PREG, UNSP NUM PLCNTA & AMNIO SACS, THIRD TRIMESTER SNOMED Code(s): 85224854 (2) Gestational hypertension Current Visit: No Status: Acute Code(s): O13.9 - GESTATIONAL HTN W/O SIGNIFICANT PROTEINURIA, UNSP TRIMESTER SNOMED Code(s): 524195620 (3) Gestational diabetes mellitus Current Visit: No Status: Acute Code(s): O24.419 - GESTATIONAL DIABETES MELLITUS IN , UNSP CONTROL SNOMED Code(s): 14461224 Plan: Continue with postoperative and care. Babies will need to stay 1 more day.
--- NOTE | 2018-09-09 09:20 | P.DS ---
Providers Date of admission: 09/05/18 06:02 Expected date of discharge: 09/09/18 Attending physician: Giulia Carmona Primary care physician: Stated None - Discharge Diagnosis(es) (1) Twin gestation in third trimester Current Visit: No Status: Acute (2) Gestational hypertension Current Visit: No Status: Acute (3) Gestational diabetes mellitus Current Visit: No Status: Acute Hospital Course: This is a 23-year-old female 3 para 1 at 37 and one sevenths weeks who presents for primary section due to twin gestation along with gestational diabetes on insulin and gestational hypertension. She underwent p rimary low transverse delivery on 09/05/2018 and delivered a viable twin babies with baby A a viable male with score of 9 at 1 minute and 10 at 5 minutes and weight of 6 lbs. 6 oz. and baby B a viable female infant with scores of 7 at 1 minute and 8 at 5 minutes and infant weight of 6 pounds 5.8 ounces. Her post operative and care has been essentially uncomplicated. She is breast-feeding. Lochia is decreasing. Pain is fairly well controlled with ibuprofen and Tylenol. Her blood pressures have stabilized although she has had an isolated blood pressure or 2 that have been high. She states during the high 1 that she was more emotional at that time. Abdomen is soft with positive bowel sounds 4. Incision is clean dry and intact with donis in place. Extremities show negative Homans. Impression is status post primary section postoperative day #4. Plan is to discharge home today. Routine postoperative and instructions are given. Donis will be removed and Steri-Strips placed prior to discharge. She is advised to follow up in the office in 1 week for a postoperative check and in 6 weeks for check. She is advised to call the office if she has any further questions or concerns prior to her appointment time. She will be given a prescription for ibuprofen and a breast pump. Procedures: Primary low transverse section on 09/05/2018 for twin gestation Patient Condition at Discharge: Stable Plan - Discharge Summary Discharge Rx Participant: Yes New Discharge Prescriptions: New Ibuprofen [Motrin] 600 mg PO Q6HR PRN #60 tab PRN Reason: Mild Pain Or Fever >= 100.5 Continue Hkr-[id number]-Hfmti Acid [-U Capsule (formulary)] 1 cap PO DAILY Discontinued INSULIN LISPRO (humaLOG) [humaLOG] 8 units SQ BID-W/MEALS Discharge Medication List Jbz-Aqrj-Oirjn Acid [-U Capsule (formulary)] 1 cap PO DAILY 06/21/17 [History] Ibuprofen [Motrin] 600 mg PO Q6HR PRN #60 tab 09/09/18 [Rx] Follow up Appointment(s)/Referral(s): Giulia Carmona DO [Doctor of Osteopathic Medicine] - 1 Week Activity/Diet/Wound Care/Special Instructions: Instructions 1. Do not begin any exercise program for 3 weeks. 2. Do not resume sexual relations for 3 weeks or longer if uncomfortable. 3. You may take tub baths or showers at any time. 4. You may use tampons if desired after 3 weeks. 5. Keep the area of episiotomy (stitches) clean and dry. 6. If you are not nursing, wear a good fitting, supportive bra during the day and limit fluid intake for at least 1 week to prevent breast engorgement. 7. Call the office, [phone], within the next week to make appointment for your 6 week checkup if it has not already been made. 8. Report any of the following occurrences to the doctor promptly: a. Heavy, excessive bleeding b. Chills, fever c. Burning or frequency of urination d. Pain or redness and breasts if nursing e. Increasing pain or swelling in episiotomy (stitches). In addition to the above instructions, the following additional should be followed: 1. No heavy lifting or straining (exercising) until after 6 week checkup. 2. Keep abdominal incision clean and dry: You may wear a dressing if more comfortable. 3. Make office appointment for 10 days after going home or as instructed by her doctor. Discharge Disposition: HOME SELF-CARE
== END 2018-09-09 11:25 | disposition home or self-care (01) | DRG 788 ==
LOC: 4FBP 06:02
PROVIDERS: ADMIT Obstetrics & Gynecology; ATTEND Obstetrics & Gynecology
PROC: 10D00Z1 Extraction of Products of Conception, Low, Open Approach (ICD-10-PCS; principal; 2018-09-05 08:00)
DX: O13.4 Gestational [pregnancy-induced] hypertension without significant proteinuria, complicating childbirth (principal); O24.424 Gestational diabetes mellitus in childbirth, insulin controlled; Z37.2 Twins, both liveborn; Z3A.37 37 weeks gestation of pregnancy; Z83.3 Family history of diabetes mellitus; O30.043 Twin pregnancy, dichorionic/diamniotic, third trimester; O32.2XX2 Maternal care for transverse and oblique lie, fetus 2; Z88.5 Allergy status to narcotic agent
CPT/HCPCS: 83036; 85025; 86850; 86900; 86901; 88307

== ENCOUNTER → 2020-07-26 | Outpatient (CLI) | payer BC, OTHER | END | disposition home or self-care (01) | LOC: LABWHC1 08:13 | PROVIDERS: ATTEND Family Medicine | DX: Z20.822 Contact with and (suspected) exposure to COVID-19 (principal) | CPT/HCPCS: U0003; C9803; U0005 ==

== ENCOUNTER 2021-11-07 22:57 | Emergency (ER) | payer BC, OTHER ==
[2021-11-08 00:52] VITALS: BP 143/83; PULSE 95; RESP 19; TEMP 97.9
[2021-11-08] MEDS ORDERED: ACETAMINOPHEN TAB 500 MG TAB PO STA (00:52)
--- NOTE | 2021-11-08 01:30 | XR ---
EXAM: XR Chest, 2 Views CLINICAL HISTORY: ITS.REASON XR Reason: cough TECHNIQUE: Frontal and lateral views of the chest. COMPARISON: No relevant prior studies available. FINDINGS: Lungs: No consolidation or mass. Pleural space: No effusion. Heart: No cardiomegaly. Bones/joints: No acute findings. IMPRESSION: No acute cardiopulmonary process.
== END 2021-11-08 03:32 | disposition left against medical advice (07) ==
LOC: EC 22:57
DX: Z53.21 Procedure and treatment not carried out due to patient leaving prior to being seen by health care provider (principal)
CPT/HCPCS: 71046; 87502; 99499

== ENCOUNTER → 2023-08-01 | Outpatient (CLI) | payer OTHER ==
--- NOTE | 2023-08-01 09:59 | US ---
EXAMINATION TYPE: US liver DATE OF EXAM: 08/01/2023 COMPARISON: NONE CLINICAL INDICATION: Female, 27 years old with history of K76.0 FATTY (CHANGE OF) LIVER, NOT ELSEWHER E CLASS; Pt states abnormal outside imaging TECHNIQUE: Multiple sonographic images of the right upper quadrant are obtained. FINDINGS: EXAM MEASUREMENTS: Liver Length: 25.9 cm Gallbladder Wall: 0.3 cm CBD: 0.3 cm Right Kidney: 12.7 x 4.2 x 5.3 cm Pancreas: Body wnl, head and tail obscured by overlying bowel gas Liver: Enlarged, heterogeneous, difficult to penetrate Gallbladder: Multiple mobile, layering stones measuring up to 1.8 cm. No abnormal distention, wall t hickening, or surrounding fluid. Evidence for sonographic Carvajal's sign: No CBD: wnl Right Kidney: No evidence of hydronephrosis IMPRESSION: 1. Marked hepatomegaly up to nearly 26 cm with severe hepatic steatosis. Appropriate clinical managem ent is advised. 2. Cholelithiasis with multiple layering gallstones measuring up to 1.8 cm. 3. No biliary ductal dilatation.
== END | disposition home or self-care (01) ==
LOC: RADUSWWP 09:05
PROVIDERS: ATTEND Family Medicine
DX: K76.0 Fatty (change of) liver, not elsewhere classified (principal); K80.20 Calculus of gallbladder without cholecystitis without obstruction; R16.0 Hepatomegaly, not elsewhere classified
CPT/HCPCS: 76705

== ENCOUNTER → 2023-08-06 | Outpatient (CLI) | payer OTHER ==
[2023-08-07 02:17] LABS: Basophils # (A) 0.04 X 10*3/uL (0.00-0.10); Basophils % (A) 0.4 %; Eosinophils # (A) 0.11 X 10*3/uL (0.04-0.35); Eosinophils % (A) 1.2 %; HCT 40.5 % (37.2-46.3); HGB 13.3 g/dL (12.0-15.0); Lymphocytes # (A) 2.45 X 10*3/uL (0.90-5.00); Lymphocytes % (A) 26.2 %; MCH 26.2 pg (27.0-32.0); MCHC 32.8 g/dL (32.0-37.0); MCV 79.9 FL (80.0-97.0); Mean Platelet Volume 9.6 FL (9.5-12.2); Monocytes # (A) 0.46 X 10*3/uL (0.20-1.00); Monocytes % (A) 4.9 %; NRBC Per 100 WBC 0 X 10*3/uL (0.00-0.01); Neutrophils # (A) 6.26 X 10*3/uL (1.80-7.70); Platelet Count 349 X 10*3/uL (140-440); RBC 5.07 X 10*6/uL (4.10-5.20); RDW 13.4 % (11.5-14.5); WBC 9.35 X 10*3/uL (4.50-10.00)
[2023-08-07 02:39] LABS: Protein, Total 7.6 g/dL (6.2-8.2)
[2023-08-07 02:40] LABS: % Iron Saturation 12.34 (12.00-45.00); ALT 89 U/L (8-44); AST 50 U/L (13-35); Albumin 4.4 g/dL (3.8-4.9); Albumin/Globulin Ratio 1.52 Ratio (1.60-3.17); Alkaline Phosphatase 108 U/L (41-126); BUN/Creat Ratio 12.17 Ratio (12.00-20.00); Blood Urea Nitrogen 7.3 mg/dL (9.0-27.0); Calcium 9.8 mg/dL (8.7-10.3); Carbon Dioxide 25.5 mmol/L (21.6-31.8); Chloride 100 mmol/L (96-109); Globulin 2.9 g/dL (1.6-3.3); Glucose 238 mg/dL (70-110); Iron 47 UG/DL (50-170); Potassium 3.7 mmol/L (3.5-5.5); Sodium 141 mmol/L (135-145); Total Bilirubin 0.3 mg/dL (0.3-1.2); Total Iron Binding Capacity 381 UG/DL (228-460); Total Protein 7.3 g/dL (6.2-8.2)
[2023-08-07 04:09] LABS: Hepatitis B Surface Antigen Nonreactive; Hepatitis C IgG Antibody Nonreactive
[2023-08-08 11:17] LABS: Albumin 4.11 g/dL (3.80-4.90)
== END | disposition home or self-care (01) ==
LOC: LABWHC1 16:28
PROVIDERS: ATTEND Internal Medicine Gastroenterology
DX: R74.01 Elevation of levels of liver transaminase levels (principal)
CPT/HCPCS: 36415; 80053; 82103; 82390; 82728; 83540; 83550; 84165; 85025; 86038; 86803; 87340

== ENCOUNTER → 2023-08-09 | Outpatient (CLI) | payer OTHER ==
--- NOTE | 2023-08-09 21:57 | CA ---
Transthoracic Echo Report Name: Bradley Mallory Age: 27 Gender: F : 1995 Exam Date: 08/09/2023 14:52 Exam Location: [facility] Ht (in): 67 Wt (lb): 232 Ordering Physician: Solo Powers MD Attending/Referring Phys: Florencia Jeronimo [facility] Polysomnographic Tech [address] Procedure CPT: Indications: R94.31 ABNORMAL ELECTROCARDIOGRAM [ECG] [EKG] Cardiac Hx: Technical Quality: Contrast 1: Total Dose (mL): Contrast 2: Total Dose (mL): MEASUREMENTS (Male / Female) Normal Values 2D ECHO LV Diastolic Diameter PLAX 4.6 cm 4.2 - 5.9 / 3.9 - 5.3 cm LV Systolic Diameter PLAX 2.5 cm IVS Diastolic Thickness 1.0 cm 0.6 - 1.0 / 0.6 - 0.9 cm LVPW Diastolic Thickness 0.8 cm 0.6 - 1.0 / 0.6 - 0.9 cm LV Relative Wall Thickness 0.4 LVOT Diameter 2.1 cm Aortic Root Diameter 3.0 cm LA Systolic Diameter LX 3.6 cm 3.0 - 4.0 / 2.7 - 3.8 cm LV Diastolic Volume MOD BP 82.9 cm??? 67 - 155 / 56 - 104 cm??? LV Systolic Volume MOD BP 44.5 cm??? 22 - 58 / 19 - 49 cm??? LV Ejection Fraction MOD BP 46.3 % >= 55 % LV Cardiac Index MOD BP 1857.1 cm???/min???m??? LV Diastolic Volume MOD 4C 94.6 cm??? LV Systolic Volume MOD 4C 55.5 cm??? LV Ejection Fraction MOD 4C 41.3 % LV Cardiac Index MOD 4C 1889.7 cm???/min???m??? LV Diastolic Length 4C 7.7 cm LV Systolic Length 4C 5.9 cm LV Diastolic Volume MOD 2C 70.7 cm??? LV Systolic Volume MOD 2C 36.1 cm??? LV Ejection Fraction MOD 2C 48.9 % LV Cardiac Index MOD 2C 1671.5 cm???/min???m??? LV Diastolic Length 2C 8.1 cm LV Systolic Length 2C 6.0 cm LA Volume 31.8 cm??? 18 - 58 / 22 - 52 cm??? LA Volume Index 14.0 cm???/m??? 16 - 28 cm???/m??? DOPPLER AV Peak Velocity 162.0 cm/s AV Peak Gradient 10.5 mmHg AV Mean Velocity 99.9 cm/s AV Mean Gradient 4.7 mmHg AV Velocity Time Integral 19.4 cm LVOT Peak Velocity 128.6 cm/s LVOT Peak Gradient 6.6 mmHg LVOT Velocity Time Integral 21.2 cm LVOT Stroke Volume 76.6 cm??? LVOT Stroke Volume Index 35.6 ml/m??? LVOT Cardiac Index 3706.1 cm???/min???m??? AV Area Cont Eq vti 4.0 cm??? AV Area Cont Eq pk 2.9 cm??? Mitral E Point Velocity 72.4 cm/s Mitral A Point Velocity 90.7 cm/s Mitral E to A Ratio 0.8 MV Deceleration Time 92.4 ms MV E' Velocity 9.2 cm/s Mitral E to MV E' Ratio 7.8 PV Peak Velocity 97.5 cm/s PV Peak Gradient 3.8 mmHg FINDINGS Left Ventricle Left ventricular ejection fraction is estimated at 55-60%. Normal left ventricular wall motion. No obvious regional wall motion abnormalities. Right Ventricle Normal right ventricular size and function. Right Atrium Normal right atrial size. Left Atrium Normal left atrial size. Mitral Valve Trace mitral regurgitation. Aortic Valve No aortic regurgitation. Tricuspid Valve No tricuspid regurgitation. Pulmonic Valve No pulmonic regurgitation. Pericardium No pericardial effusion. Aorta Normal size aortic root. CONCLUSIONS Normal LVEF estimated at 55-60% Moderate concentric LVH No obvious regional wall motion abnormality No significant valvular dysfunction, Previewed by: Dr Steve Reed (Electronically Signed) Final Date: 09 August 2023 21:56
== END | disposition home or self-care (01) ==
LOC: RADECHMAIN 14:47
PROVIDERS: ATTEND Family Medicine
DX: R94.31 Abnormal electrocardiogram [ECG] [EKG] (principal)
CPT/HCPCS: 93306

== ENCOUNTER 2023-08-21 06:17 | Day surgery (SDC) | payer OTHER ==
[~2023-08-21 06:17] MED LIST: LIDOCAINE 1% (10MG/ML) FOR IV START INTRADERMA PRN
[2023-08-21] MEDS ORDERED: MIDAZOLAM 2 MG/2 ML VIAL IV PRN (07:00)
[2023-08-21] MEDS ORDERED: fentaNYL (PF) 50 MCG/ML 2 ML AMP IV PRN (07:00)
[2023-08-21 07:01] LABS: Glucose,Whole Blood 259 mg/dL (70-110)
[2023-08-21] MEDS: LACTATED RINGERS 1,000 ML IV SCH (07:03)
[2023-08-21] MEDS: INSULIN ASPART (NovoLOG) 100 UNIT/ML VIAL SQ ONE ×2 (07:12→09:20)
[2023-08-21] MEDS: ACETAMINOPHEN TAB 500 MG TAB PO PRN (07:13)
[2023-08-21] MEDS: ONDANSETRON 4 MG/2 ML VIAL ONE (07:17)
[2023-08-21] MEDS: DEXAMETHASONE SOD PHOSPHATE 4 MG/ML 1 ML VIAL IVP ONE (07:18)
[2023-08-21] MEDS: HEPARIN SODIUM,PORCINE 5,000 UNIT/ML 1 ML VIAL SQ PRN (07:22)
[2023-08-21] MEDS ORDERED: GLYCOPYRROLATE 0.2 MG/ML 2 ML VIAL ONE (07:30)
[2023-08-21] MEDS ORDERED: MIDAZOLAM 2 MG/2 ML VIAL ONE (07:30)
[2023-08-21] MEDS ORDERED: HYDROmorphone (PF) 1 MG/ML ONE (07:30)
[2023-08-21] MEDS ORDERED: LIDOCAINE 1% INJ 10MG/ML (20 ML MDV) ONE (07:30)
[2023-08-21] MEDS ORDERED: NEOSTIGMINE 1 MG/ML 10 ML VIAL ONE (07:30)
[2023-08-21] MEDS ORDERED: SUCCINYLCHOLINE CHLORIDE 200 MG/10 ML VIAL IV ONE (07:30)
[2023-08-21] MEDS ORDERED: fentaNYL (PF) 50 MCG/ML 2 ML AMP ONE (07:30)
[2023-08-21] MEDS ORDERED: KETOROLAC 15 MG/ML 1 ML VIAL ONE (07:30)
[2023-08-21] MEDS ORDERED: PROPOFOL 10 MG/ML 20 ML VIAL IV ONE (07:30)
[2023-08-21] MEDS ORDERED: ROCURONIUM 10 MG/ML (5 ML VIAL) IV ONE (07:30)
--- NOTE | 2023-08-21 08:18 | P.OP ---
Date of Procedure: 08/21/23 Preoperative Diagnosis: Cholelithiasis Postoperative Diagnosis: Cholelithiasis Procedure(s) Performed: Laparoscopic cholecystectomy Anesthesia: GILBERTO Surgeon: Gabriel Gomez Estimated Blood Loss (ml): 10 Pathology: other (Gallbladder) Condition: stable Disposition: PACU Description of Procedure: The patient was placed on the operating table. The patient received a general endotracheal tube anesthesia. The patients abdomen was prepped and draped in the usual sterile fashion. Through an infraumbilical stab incision, the fascia of the anterior abdominal wall was grasped with a pair of Kochers and then the Veress needle was placed in the peritoneal cavity. Position of the Veress needle was confirmed with positive drop test. The abdomen was then insufflated. After adequate insufflation, the 10 mm trocar was placed in the peritoneal cavity. Following this the laparoscope was placed in the peritoneal cavity. The patient was placed in the head-up, right side up position and then a 5 mm trocar was placed in the right lateral and right subcostal position under direct visualization. A 8 mm trocar was placed in the epigastric position. The gallbladder was grasped in the fundus and infundibulum. Traction on the gallbladder was placed in the lateral and the cephalad positions. The triangle of Calot was visualized.. The cystic duct was bluntly dissected until the union of the cystic duct and common bile duct was seen. A critical view of safety was achieved. The cystic duct was then divided and sealed with the Harmonic scissors. A PDS Endoloop was then placed throughout the cystic duct stump. The cystic artery divided and sealed with the Harmonic scissors. The gallbladder was then removed from the liver bed using Harmonic scissors. The gallbladder was then extracted through the epigastric port site. Operative field was checked for any bleeding spots and Harmonic scissors was used to coagulate the liver bed. The abdomen was irrigated. The trocars were removed. The skin was closed using interrupted 3-0 Vicryl suture. Dermabond dressing were applied. The patient tolerated the procedure well.
[2023-08-21 08:27] LABS: Glucose,Whole Blood 279 mg/dL (70-110)
[2023-08-21 09:08] LABS: Glucose,Whole Blood 304 mg/dL (70-110)
[2023-08-21 09:15] VITALS: TEMP 97
[2023-08-21 09:57] VITALS: BP 139/82; PULSE 99; RESP 18
== END 2023-08-21 10:35 | disposition home or self-care (01) ==
LOC: OR 06:17
PROVIDERS: ATTEND Surgery
DX: K80.10 Calculus of gallbladder with chronic cholecystitis without obstruction (principal); F41.9 Anxiety disorder, unspecified; E11.9 Type 2 diabetes mellitus without complications; I10 Essential (primary) hypertension; J45.909 Unspecified asthma, uncomplicated; F17.290 Nicotine dependence, other tobacco product, uncomplicated; F32.A Depression, unspecified; Z88.5 Allergy status to narcotic agent; Z90.89 Acquired absence of other organs; Z98.891 History of uterine scar from previous surgery; Z79.51 Long term (current) use of inhaled steroids; Z79.899 Other long term (current) drug therapy; Z98.890 Other specified postprocedural states
CPT/HCPCS: 47562; 81025; 88304; J2250; J0330; J1644; J1100; J2710; J0690; J2405; J2001; J3010; J1170; J1885; J2704

== ENCOUNTER → 2023-10-29 | Outpatient (CLI) | payer OTHER | END | disposition home or self-care (01) | LOC: LABWHC1 10:16 | PROVIDERS: ATTEND Internal Medicine Cardiovascular Disease | DX: I10 Essential (primary) hypertension (principal) | CPT/HCPCS: 36415; 82088; 82533; 83835; 84244 ==

== ENCOUNTER → 2023-11-19 | Outpatient (CLI) | payer OTHER ==
--- NOTE | 2023-11-19 09:22 | US ---
EXAMINATION TYPE: US renal artery duplex complet DATE OF EXAM: 11/19/2023 COMPARISON: NONE CLINICAL INDICATION: Female, 28 years old with history of I10 Essential hypertension; HTN since pregn demetra MEASUREMENTS: RENAL SIZE: Right Kidney: 11.8 x 4.2 x 4.6 cm Left Kidney: 11.3 x 4.7 x 5.7 cm Right Kidney: No hydronephrosis or lesions seen Left Kidney: No hydronephrosis or lesions seen Abd Aorta: 1.3 cm RESISTANCE INDEX Right: 0.67 Left: 0.77 RA/AO RATIO (< 3.5 ) Right: 1.2 Left: 1.1 RENAL ARTERY VELOCITY ( < 180 cm/s) Right: 204 Left: 188 Elevated renal artery velocities with normal renal artery to aortic ratios. Normal appearing waveform s. Normal-appearing resistive indices. IMPRESSION: Elevated renal artery velocities without additional ultrasound evidence to suggest renal artery steno sis. If there is continued clinical concern, consider further evaluation with CTA abdomen.
== END | disposition home or self-care (01) ==
LOC: RADUSWWP 06:55
PROVIDERS: ATTEND Internal Medicine Cardiovascular Disease
DX: I10 Essential (primary) hypertension (principal)
CPT/HCPCS: 93975

== ENCOUNTER 2024-03-06 11:45 | Emergency (ER) | payer OTHER ==
[2024-03-06 11:49] VITALS: TEMP 98
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
--- NOTE | 2024-03-06 13:32 | XR ---
EXAMINATION TYPE: XR ankle complete RT DATE OF EXAM: 03/06/2024 COMPARISON: NONE HISTORY: Pain FINDINGS: Three views of the ankle demonstrate the ankle mortise to be intact and symmetric. The joint spaces are preserved. The osseous structures are intact. IMPRESSION: 1. No definite acute fracture or dislocation, if symptoms persist follow-up study in 7 to 10 days wou ld be suggested. [facility], , 03/06/2024 1:30 PM
--- NOTE | 2024-03-06 13:33 | XR ---
EXAMINATION TYPE: XR knee complete RT DATE OF EXAM: 03/06/2024 COMPARISON: NONE HISTORY: Pain TECHNIQUE: Three views are submitted. FINDINGS: Joint spaces are preserved. Osseous structures are intact. No acute fracture seen. IMPRESSION: 1. No acute fracture or dislocation. [facility], , 03/06/2024 1:31 PM
--- NOTE | 2024-03-06 13:35 | XR ---
EXAMINATION TYPE: XR Hip RT and AP Pelvis DATE OF EXAM: 03/06/2024 COMPARISON: NONE HISTORY: Pain TECHNIQUE: A single AP view of the pelvis is obtained. Two views of the right hip are obtained. FINDINGS: There is no acute fracture/dislocation evident in the pelvis. The hip and sacroiliac join ts appear symmetric and unremarkable. The overlying soft tissue appears unremarkable. Two views of right hip show no acute fracture or dislocation. No focal lytic or sclerotic lesion see n in the proximal right femur. The overlying soft tissue is unremarkable. IMPRESSION: There is no acute fracture or dislocation in the pelvis or right hip. [facility], , 03/06/2024 1:33 PM
[2024-03-06] MEDS: KETOROLAC 15 MG/ML 1 ML VIAL IM STA (14:43)
[2024-03-06] MEDS: methocarbamoL 750 MG TAB PO STA (14:43)
[2024-03-06] MEDS: LIDOCAINE 4% PATCH TOPICAL ONE (14:45)
[2024-03-06 15:09] VITALS: BP 125/79; PULSE 87; RESP 18
== END 2024-03-06 15:08 | disposition home or self-care (01) ==
LOC: EC 11:45
CPT/HCPCS: 73502; 96372; 99284

== ENCOUNTER → 2024-03-10 | Outpatient (CLI) | payer OTHER ==
--- NOTE | 2024-03-10 13:50 | XR ---
EXAMINATION TYPE: XR lumbar spine 3V DATE OF EXAM: 03/10/2024 Comparison: None Clinical History: 28-year-old female S30.0XXA Findings: 5 lumbar type vertebral bodies. Vertebral body heights are preserved and alignment is maintained. Dis c interspaces also relatively preserved. Impression: No vertebral compression collapse or malalignment. [facility], , 03/10/2024 1:48 PM
== END | disposition home or self-care (01) ==
LOC: RADXRMAIN 12:14
PROVIDERS: ATTEND Emergency Medicine
DX: S30.0XXA Contusion of lower back and pelvis, initial encounter (principal)
CPT/HCPCS: 72100

== ENCOUNTER 2024-09-14 08:24 | Emergency (ER) | payer OTHER ==
[2024-09-14 08:38] VITALS: TEMP 98.1
--- NOTE | 2024-09-14 09:08 | ED ---
General Adult HPI - General Chief complaint: Recheck/Abnormal Lab/Rx Stated complaint: right hand injury Time Seen by Provider: 09/14/24 08:40 Source: patient Mode of arrival: ambulatory Limitations: no limitations - History of Present Illness Initial comments: Dictation was produced using [employer] dictation software. please excuse any grammatical, word or spelling errors. Chief Complaint: 29-year-old female presents to the emergency department right finger numbness History of Present Illness: Patient 21-year-old female she broke her hand a week ago after accidentally punching a hard object. She was seen at urgent care was placed in a splint. Patient has not followed up with orthopedic surgery yet. Went to her primary care doctor for Ortho referral has not had that appointment yet. Patient states that her 5th and 4th digits on the right hand feel numb. Called her primary care doctor told her to come to the ER The ROS documented in this emergency department record has been reviewed and confirmed by me. Those systems with pertinent positive or negative responses have been documented in the HPI. All other systems are other negative and/or noncontributory. - Related Data Home Medications Medication Instructions Recorded Confirmed Albuterol Inhaler [Ventolin Hfa 1 puff INHALATION QID PRN 08/15/23 08/21/23 Inhaler] Dulaglutide [Trulicity] 0.75 mg SQ Q7D 08/15/23 08/21/23 Empagliflozin [Jardiance] 10 mg PO HS 08/15/23 08/21/23 lisinopriL [Zestril] 20 mg PO HS 08/15/23 08/21/23 Previous Rx's Medication Instructions Recorded Acetaminophen Tab [Tylenol] 650 mg PO Q6H #30 tab 08/21/23 Docusate [Colace] 100 mg PO BID #20 capsule 08/21/23 Ibuprofen [Motrin] 600 mg PO Q6HR PRN #40 tab 08/21/23 oxyCODONE HCL [OxyIR] 5 mg PO Q6H PRN 3 Days #10 tab 08/21/23 Ibuprofen [Motrin] 600 mg PO Q8HR PRN #30 tab 03/06/24 Lidocaine 5% Patch [Lidoderm] 1 patch TOPICAL DAILY #30 patch 03/06/24 methocarbamoL [Robaxin] 500 mg PO TID PRN #15 tab 03/06/24 Allergies Allergy/AdvReac Type Severity Reaction Status Date / Time codeine AdvReac Nausea & Verified 09/14/24 08:38 Vomiting Review of Systems ROS Statement: Those systems with pertinent positive or pertinent negative responses have been documented in the HPI. ROS Other: All systems not noted in ROS Statement are negative. 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 History of Any Multi-Drug Resistant Organisms: None Reported Past Surgical History: Adenoidectomy, Section, Tonsillectomy Additional Past Surgical History / Comment(s): x 1 Past Anesthesia/Blood Transfusion Reactions: Postoperative Nausea & Vomiting (PONV) Additional Past Anesthesia/Blood Transfusion Reaction / Comment(s): very nauseous w/ spinal for Past Psychological History: Anxiety, Depression Smoking Status: Vaper Past Alcohol Use History: None Reported Past Drug Use History: None Reported - Past Family History Mother Family Medical History: Diabetes Mellitus, Deep Vein Thrombosis (DVT) Additional Family Medical History / Comment(s): type 2 diabetes, MTHFR - subsequent loss of toes on one foot General Exam - General Exam Comments Initial Comments: General: Well-appearing, nontoxic, no acute distress. Head: Normocephalic, atraumatic Eyes: PERRLA, EOMI ENT: Airway patent Chest: Nonlabored breathing Skin: No visual rash, normal skin tone Neuro: Alert and oriented 3 Musculoskeletal: No gross abnormalities Right hand: Right upper extremity in a splint, fourth fifth digit have good cap refill Limitations: no limitations Course Vital Signs 09/14/24 08:36 Temperature 98.1 F Pulse Rate 64 Respiratory 18 Rate Blood Pressure 158/95 O2 Sat by Pulse 98 Oximetry Medical Decision Making - Medical Decision Making Was pt. sent in by a medical professional or institution (, PA, SLITTER HELPER, urgent care, hospital, or fdc...) When possible be specific @ -No Did you speak to anyone other than the patient for history (EMS, parent, family, police, friend...)? What history was obtained from this source @ -No Did you review nursing and triage notes (agree or disagree)? Why? @ -I reviewed and agree with nursing and triage notes Were old charts reviewed (outside hosp., previous admission, EMS record, old EKG, old radiological studies, urgent care reports/EKG's, [facility] records)? Report findings @ -No old charts were reviewed Differential Diagnosis (chest pain, altered mental status, abdominal pain women, abdominal pain men, vaginal bleeding, musculoskeletal, weakness, fever, dyspnea, syncope, headache, dizziness, GI bleed, back pain, seizure, CVA, palpatations, mental health)? @ -Hand contusion, hand fracture, radial artery occlusion EKG interpreted by me (3pts min.). @ -None done X-rays interpreted by me (1pt min.). @ -X-ray shows nondisplaced fifth proximal metacarpal fracture CT interpreted by me (1pt min.). @ -None done U/S interpreted by me (1pt. min.). @ -None done What testing was considered but not performed or refused? (CT, X-rays, U/S, labs)? Why? @ -None What meds were considered but not given or refused? Why? @ -None Was smoking cessation discussed for >3mins.? @ -No Were there social determinants of health that impacted care today? How? (Homelessness, low income, unemployed, alcoholism, drug addiction, transportation, low edu. Level, literacy, decrease access to med. care, halfway, rehab)? @ -No Was there de-escalation of care discussed even if they declined (Discuss DNR or withdrawal of care, Hospice)? DNR status @ -No What co-morbidities impacted this encounter? (DM, HTN, Smoking, COPD, CAD, Cancer, CVA, ARF, Chemo, Hep., AIDS, mental health diagnosis, sleep apnea, morb id obesity)? @ -None Was patient admitted / discharged? Hospital course, mention meds given and route, prescriptions, significant lab abnormalities, going to OR and other pertinent info. @ -21-year-old female presents with numbness in her 4th and 5th digit after being in a splint for approximately a week. She suffered a fracture after punching a hard object. Vital signs stable. Physical examination is benign. X-ray shows nondisplaced base of fifth metacarpal fracture. Patient resplinted patient given follow-up with hand surgeon. Patient discharged Did you discuss the management of the patient with other professionals (professionals i.e. Dr., PA, SLITTER HELPER, lab, RT, psych nurse, aids social worker, diversified crops supervisor, teacher, light armored vehicle officer, correctional counselor/case manager)? Give summary @ -No Was critical care preformed (if so, how long)? @ -No Undiagnosed new problem with uncertain prognosis? @ -No Drug Therapy requiring intensive monitoring for toxicity (Heparin, Nitro, Insulin, Cardizem)? @ -No Were any procedures done? @ -No Diagnosis/symptom? Acute, or Chronic, or Acute on Chronic? Uncomplicated (without systemic symptoms) or Complicated (systemic symptoms)? @ -Finger fracture Side effects of treatment? @ -No Exacerbation, Progression, or Severe Exacerbation? @ -No Poses a threat to life or bodily function? How? (Chest pain, [place], [place], pneumonia, PE, COPD, DKA, ARF, appy, cholecystitis, CVA, Diverticulitis, Homicidal, Suicidal, threat to staff... and all critical care pts) @ -No Disposition Clinical Impression: Finger fracture Disposition: HOME SELF-CARE Condition: Good Instructions (If sedation given, give patient instructions): Finger Fracture (ED) Is patient prescribed a controlled substance at d/c from ED?: No Referrals: Jose Mills, TERESA [PHYSICIAN MINER] - 09/15/24 1:10 pm (Please bring insurance cards and ID to complete any paperwork prior to appointment.) Farooq Duff MD [Primary Care Provider] - 1-2 days Time of Disposition: 11:13
--- NOTE | 2024-09-14 10:09 | XR ---
EXAMINATION TYPE: XR hand complete RT DATE OF EXAM: 09/14/2024 9:58 AM COMPARISON: None. CLINICAL INDICATION: Female, 29 years old with history of finger numbness, pain TECHNIQUE: XR hand complete RT XX views were obtained. FINDINGS: There is nondisplaced fracture at the base of the proximal phalanx right fifth digit. No definite int ra-articular extension seen. Soft tissue swelling noted. The joint spaces appear within normal limits . IMPRESSION: As above [facility], , 09/14/2024 10:07 AM
[2024-09-14 11:23] VITALS: BP 150/93; PULSE 82; RESP 17
== END 2024-09-14 11:22 | disposition home or self-care (01) ==
LOC: EC 08:24
DX: S62.306A Unspecified fracture of fifth metacarpal bone, right hand, initial encounter for closed fracture (principal); F17.290 Nicotine dependence, other tobacco product, uncomplicated; Z88.5 Allergy status to narcotic agent; W22.8XXA Striking against or struck by other objects, initial encounter
CPT/HCPCS: 99283